=== PATIENT | male | born 1950 | race Caucasian/White ===

== ENCOUNTER 2017-06-21 12:50 | Inpatient (IN) | payer MEDICARE ==
[2017-06-21 14:22] VITALS: BP 90/50
[2017-06-21] MEDS ORDERED: Maalox 30 mL Cup PO PRN (14:47)
[2017-06-21] MEDS ORDERED: Magnesium Hydroxide (MOM) 30 mL UDC PO PRN (14:47)
[2017-06-21] MEDS: Hydrocodone/APAP 5mg/325mg Tab PO PRN (16:33)
[2017-06-21] MEDS ORDERED: MARAVIROC 300 MG PO SCH (17:00)
[2017-06-21] MEDS: TIVICAY 50 MG PO SCH (18:00)
[2017-06-22] MEDS ORDERED: Enoxaparin 40 mg/0.4 mL 0.4mL Syr SUBQ SCH (09:00)
[2017-06-22] MEDS: Vitamin D3 2,000 IU SGL PO SCH (09:16)
[2017-06-22] MEDS: Ferrous Sulfate 325 MG TAB PO SCH (09:17)
[2017-06-22] MEDS: TIVICAY 50 MG PO SCH ×2 (09:17→17:47)
--- NOTE | 2017-06-22 11:13 | Psychosocial Evaluation ---
DATE OF SERVICE: 06/21/2017 IDENTIFYING DATA: The patient is a 66-year-old male, currently homeless. Information obtained by directly interviewing the patient as well as reviewing the admission papers. JUSTIFICATION FOR HOSPITALIZATION: The patient is admitted on a 5150 as a danger to self and being gravely disabled. CHIEF COMPLAINT: "I want to give up." HISTORY OF PRESENT ILLNESS: This is one of multiple psychiatric hospitalizations, first one to [facility], for this patient who has been brought in here from [place] and the patient has been placed on 5150 as a danger to self because the patient has taken a blade and cut his left wrist and the patient is stating that since his , he has been feeling depressed and wanting to end his life. The patient during the interview has been isolative and withdrawn. The patient is stating that he was started on medications before, but he states that he stopped taking the medications 3 months ago. PAST PSYCHIATRIC HISTORY: Please refer to the above. The patient is very irritable at this time for being in here away from all the way where he has been staying; however, he is reporting that he is not able to sleep. MEDICAL HISTORY: Physical examination is requested and done by Dr. Carmona. The patient's medical history is significant for HIV positive and neuropathy. SOCIAL HISTORY: The patient is reporting that he was raised in [place]. The patient is stating that he has two biological sisters and has no contact with them, has one adopted brother. The patient is reported to have been in [employer] business and working in [place] for more than 15 years. The patient is reported that his life changed since his partner of HIV and he was apparently infected at that time and has been on antiviral medications in the recent years. The patient is stating that he has been having difficult time to deal with the stuff and things have been going down since 2013. The patient is reporting that he is currently homeless. SUBSTANCE ABUSE HISTORY: The patient has a history of abusing methamphetamine in the past, but he is stating that he is just drinking alcohol, but he is not using any hardcore drugs. STRENGTH AND ASSETS: The patient is motivated. MENTAL STATUS EXAMINATION: The patient is 66-year-old, thin built, superficially cooperative. Eye contact is poor. Mood is noted to be depressed. Affect is constricted. Insight and judgment at this time are noted to be impaired. Impulse control seems to be poor. The patient is suicidal with a plan. The patient has been cutting up on himself. The patient has multiple lacerations on his wrists. Speech is coherent and the patient has been able to give a detailed history. The patient, however, has been feeling helpless and hopeless. The patient is stating that since his , he has been having difficult time to deal with the stress. The patient is denying any auditory hallucinations or delusions are noted. The patient is alert and oriented x 3. Short and long-term memory is noted to be intact. The patient's behavior is clearly a danger to self at this time. The patient is not homicidal. The patient, however, is noted to be motivated for treatment. The patient is lying down in the bed and the patient is also reported to have been using the wheelchair. DIAGNOSTIC IMPRESSION: AXIS I: a. Major depressive disorder, recurrent and severe. b. Alcohol dependence. AXIS II: None. AXIS III: As per Dr. Carmona. IMMEDIATE TREATMENT PLAN: The patient is going to be observed on inpatient unit, provided with supportive psychotherapy. The patient is going to be started on low dose of Lexapro and the patient is going to be closely monitored. Once stabilized, the patient is going to be discharged and outpatient case manager is going to be involved with regards to placement of this patient. JOB# [id number]
[2017-06-22] MEDS: Hydrocodone/APAP 5mg/325mg Tab PO PRN ×2 (12:10→21:34)
--- NOTE | 2017-06-23 04:54 | History & Physical ---
ADMIT DATE: REASON FOR ADMISSION: Psychiatric disorder. HISTORY OF PRESENT ILLNESS: This is a 66-year-old with underlying history of HIV, hep C, was admitted to [facility] for evaluation and treatment of underlying psychiatric illness . The patient denies any current medical concerns. The patient was diagnosed with HIV in 1981. He goes to HIV clinic. PAST MEDICAL HISTORY: HIV, hepatitis. FAMILY HISTORY: Noncontributory. SOCIAL HISTORY: [facility]. Denies any alcohol, tobacco, or street drug use. CURRENT MEDICATIONS: As per medication reconciliation list, reviewed. ALLERGIES: No known drug allergies. REVIEW OF SYSTEMS: The patient denies any fever. No chills, no nausea, no vomiting, no abdominal pain, no headache, no trouble with vision, no trouble with speech or other complaints. PHYSICAL EXAMINATION: VITAL SIGNS: Temperature 98.2, pulse 80 respirations 20, blood pressure 98/64. HEART: S1, S2 normal. LUNGS: Clear. ABDOMEN: Soft, nontender. NEUROLOGIC: The patient is awake. Moves all extremities. No focal deficits. EXTREMITIES: No edema. AVAILABLE LABORATORY DATA: Reviewed. ASSESSMENT: 1. HIV. 2. Hepatitis C. 3. Hypertension. 4. Iron deficiency anemia. 5. Mental health disorder PLAN: The patient will be continued on HIV medications. ID consult has been called in. The patient's Coreg will be discontinued due to low blood pressure. Continue iron supplement. I discussed the patient's condition and plan of care discussed with nursing staff. JOB# [id number] [facility]
[2017-06-23] MEDS: Ferrous Sulfate 325 MG TAB PO SCH (08:36)
[2017-06-23] MEDS: Vitamin D3 2,000 IU SGL PO SCH (08:36)
[2017-06-23] MEDS: TIVICAY 50 MG PO SCH ×2 (08:38→16:10)
--- NOTE | 2017-06-23 21:23 | Progress Notes ---
DATE: 06/23/2017 Staff was spoken to. The patient is interviewed. Mood is noted to be depressed. Affect is constricted. The patient's insight and judgment are noted to be still impaired. Impulse control is very poor. Coping skills are also noted to be very poor. The patient is isolated and withdrawn. The patient is worried about not getting his HIV medications. The patient is stating that he is getting frustrated. The patient is still suicidal. No homicidal ideation is noted. The patient is being closely monitored at this time. The patient is currently on the escitalopram 10 mg for her depression and the patient is going to be closely monitored and provided with supportive therapy. ASSESSMENT: The patient is still depressed and suicidal. PLAN: To continue patient with the supportive therapy. I encouraged the patient to verbalize the concerns rather than to act out. JOB# [id number]
--- NOTE | 2017-06-24 00:27 | Consultation ---
DATE OF CONSULTATION: 06/23/2017 INFECTIOUS DISEASE CONSULTATION REFERRING PHYSICIAN: Brett Carmona M.D. REASON FOR CONSULTATION: HIV. HISTORY OF PRESENT ILLNESS: The patient is a 66-year-old male with a past medical history of HIV, hepatitis C, admitted to [facility] for evaluation and treatment of his depression. He lost his boyfriend who of same disease and got depressed. The patient was diagnosed with HIV in 1981 and doing well on current medication including Tivicay and Maraviroc. PAST MEDICAL HISTORY: Includes HIV, hepatitis C. FAMILY HISTORY: Noncontributory. SOCIAL HISTORY: The patient lives at a snf. Denies any alcohol use, smoking, or street drug use. MEDICATIONS: As per medication reconciliation sheet. Antiretrovirals include Maraviroc and Tivicay. ALLERGIES: NKDA. REVIEW OF SYSTEMS: Not significant. A 14-point review of system performed was negative except mentioned above. The patient's only symptom is depression. The patient is unable to walk on his own. PHYSICAL EXAMINATION: VITAL SIGNS: Shows temperature is 98 degrees Fahrenheit, pulse 72, respirations 20, blood pressure 109/74. GENERAL: The patient is comfortable, lying in the bed, cachectic. HEENT: Head is normocephalic, atraumatic. Oral cavity moist, pink tongue. Eyes: No pallor, no icterus. Pupils PERRLA, EOMI. NECK: Supple. No JVD, no carotid bruit. Trachea in midline. CHEST: Bilateral breath sounds. No crackles or wheezing. HEART: S1, S2 within normal limits. Regular rhythm. No murmur, no gallop. ABDOMEN: Soft, nontender, nondistended. Bowel sounds present. EXTREMITIES: No cyanosis, no clubbing, no edema. NEUROLOGIC: Alert, awake, oriented x 3. LABORATORY DATA: No labs available at this time. IMPRESSION: 1. Human immunodeficiency virus, as per the patient, he is stable, doing well. 2. Depression. 3. Generalized weakness. RECOMMENDATIONS: We will continue the same medication of Tivicay and Maraviroc. May get records from the HIV provider. Meanwhile, check CD4 count and HIV viral load. Check hepatitis C panel and alpha-fetoprotein. Thank you, Dr. Carmona for involving me in taking care of this patient. JOB# [id number] MTDD
[2017-06-24 07:14] LABS: % BASOPHILS 0.4 % (0.0-2.0); % EOSINOPHILS 7.7 % (0.0-5.0); % LYMPHOCYTES 14.3 % (20.0-50.0); % MONOCYTES 6.3 % (2.0-10.0); % NEUTROPHILS 71.3 % (40.0-80.0); EOSINOPHILE ABSOLUTE 0.4 Th/cmm (0.1-0.4); HEMATOCRIT 36.9 % (41.0-60); HEMOGLOBIN 12.5 gm/dL (12-16); LYMPHOCYTE ABSOLUTE 0.8 Th/cmm (1.5-3.0); MEAN CORPUSCULAR HEMOGLOBIN 27.7 pg (27.0-31.0); MEAN CORPUSCULAR HGB CONC 33.8 pg (28.0-36.0); MEAN PLATELET VOLUME 9.1 fl; MONOCYTE ABSOLUTE 0.4 Th/cmm (0.3-1.0); NEUTROPHILE ABSOLUTE 4.2 Th/cmm (1.8-8.0); PLATELET COUNT 193 Th/cmm (150-400); RED CELL DISTRIBUTION WIDTH 15.2 % (11.5-20.0); WHITE BLOOD COUNT 5.8 Th/cmm (4.8-10.8)
[2017-06-24 07:48] LABS: ALB/GLOB RATIO 0.8 (1.0-1.8); ALBUMIN 2.6 gm/dL (4.2-5.5); ALKALINE PHOSPHATASE 340 U/L (34-104); ANION GAP 10.1 (7.0-16.0); BILIRUBIN,TOTAL 1.6 mg/dL (0.3-1.0); BUN - UREA NITROGEN 17 mg/dL (7-25); CALCIUM SERUM 8.5 mg/dL (8.6-10.3); CARBON DIOXIDE 24.9 mEq/L (21.0-31.0); CHLORIDE 99 mEq/L (98-107); CREATININE - SERUM 0.6 mg/dL (0.7-1.3); GFR AFRICAN-AMERICAN > 60.0 ml/min (>90); GFR NON AFRICAN-AMERICAN > 60.0 ml/min; GLUCOSE 91 mg/dL (70-105); SGOT 102 U/L (13-39); SGPT/ALT 56 U/L (7-52); SODIUM SERUM 130 mEq/L (136-145); TOTAL PROTEIN,SERUM 5.8 gm/dL (6.0-8.3)
[2017-06-24] MEDS: Ferrous Sulfate 325 MG TAB PO SCH (08:53)
[2017-06-24] MEDS: Vitamin D3 2,000 IU SGL PO SCH (08:53)
[2017-06-24] MEDS: TIVICAY 50 MG PO SCH ×2 (09:30→16:13)
--- NOTE | 2017-06-24 14:24 | Infectious Disease Prog Note ---
Infectious Disease Subjective - Review of Systems Service Date: 06/24/17 Events since last encounter: No new change. Subjective: Doing well. Infectious Disease Objective - Results Result Diagrams: 06/24/17 06:57 06/24/17 06:57 Recent Labs: Laboratory Last Values WBC 5.8 Th/cmm (4.8-10.8) 06/24/17 06:57 RBC 4.50 Mil/cmm (3.80-5.80) 06/24/17 06:57 Hgb 12.5 gm/dL (12-16) 06/24/17 06:57 Hct 36.9 % (41.0-60) L 06/24/17 06:57 MCV 82.0 fl (80-99) 06/24/17 06:57 MCH 27.7 pg (27.0-31.0) 06/24/17 06:57 MCHC Differential 33.8 pg (28.0-36.0) 06/24/17 06:57 RDW 15.2 % (11.5-20.0) 06/24/17 06:57 Plt Count 193 Th/cmm (150-400) 06/24/17 06:57 MPV 9.1 fl 06/24/17 06:57 Neutrophils % 71.3 % (40.0-80.0) 06/24/17 06:57 Lymphocytes % 14.3 % (20.0-50.0) L 06/24/17 06:57 Monocytes % 6.3 % (2.0-10.0) 06/24/17 06:57 Eosinophils % 7.7 % (0.0-5.0) H 06/24/17 06:57 Basophils % 0.4 % (0.0-2.0) 06/24/17 06:57 Sodium 130 mEq/L (136-145) L 06/24/17 06:57 Potassium 4.0 mEq/L (3.5-5.1) 06/24/17 06:57 Chloride 99 mEq/L (98-107) 06/24/17 06:57 Carbon Dioxide 24.9 mEq/L (21.0-31.0) 06/24/17 06:57 Anion Gap 10.1 (7.0-16.0) 06/24/17 06:57 BUN 17 mg/dL (7-25) 06/24/17 06:57 Creatinine 0.6 mg/dL (0.7-1.3) L 06/24/17 06:57 Est GFR ( Amer) > 60.0 ml/min (>90) 06/24/17 06:57 Est GFR (Non-Af Amer) > 60.0 ml/min 06/24/17 06:57 BUN/Creatinine Ratio 28.3 06/24/17 06:57 Glucose 91 mg/dL (70-105) 06/24/17 06:57 Calcium 8.5 mg/dL (8.6-10.3) L 06/24/17 06:57 Total Bilirubin 1.6 mg/dL (0.3-1.0) H 06/24/17 06:57 AST 102 U/L (13-39) H 06/24/17 06:57 ALT 56 U/L (7-52) H 06/24/17 06:57 Alkaline Phosphatase 340 U/L (34-104) H 06/24/17 06:57 Total Protein 5.8 gm/dL (6.0-8.3) L 06/24/17 06:57 Albumin 2.6 gm/dL (4.2-5.5) L 06/24/17 06:57 Globulin 3.2 gm/dL 06/24/17 06:57 Albumin/Globulin Ratio 0.8 (1.0-1.8) L 06/24/17 06:57 HIV 1&2 Antibody Screen POSITIVE (NEG) H 06/24/17 06:57 - Physical Exam Vitals and I&O: Vital Signs Temp 98 F 06/23/17 20:57 Pulse 72 06/23/17 20:57 Resp 20 06/23/17 20:57 BP 109/74 06/23/17 20:57 Pulse Ox 98 06/23/17 14:00 Intake & Output 06/23/17 06/24/17 06/24/17 18:59 06:59 18:59 Intake Total 1200 120 Balance 1200 120 Intake: Oral 1200 120 Other: # Voids 3 1 Active Medications: Current Medications Acetaminophen (Tylenol) 650 mg PO Q4H PRN PRN Reason: Mild Pain/Headache/T above 101 Stop: 08/20/17 14:46 Acetaminophen/Hydrocodone Bitart ([place] 5mg/325mg) 1 tab PO Q4HR PRN PRN Reason: Pain (Moderate) Stop: 08/20/17 14:34 Last Admin: 06/22/17 21:34 Dose: 1 tab Al Hydrox/Mg Hydrox/Simethicone (Maalox) 30 ml PO Q6H PRN PRN Reason: Dyspepsia Stop: 08/20/17 14:46 Aripiprazole (Abilify) 15 mg PO DAILY [facility] PRN Reason: Protocol Stop: 08/21/17 08:59 Last Admin: 06/24/17 08:53 Dose: 15 mg Aspirin (Ecotrin) 81 mg PO DAILY [facility] Stop: 08/21/17 08:59 Last Admin: 06/24/17 08:53 Dose: 81 mg Escitalopram Oxalate (Lexapro) 10 mg PO DAILY [facility] PRN Reason: Protocol Stop: 08/22/17 08:59 Last Admin: 06/24/17 08:53 Dose: 10 mg Famotidine (Pepcid) 20 mg PO BID [facility] Stop: 08/20/17 16:59 Last Admin: 06/24/17 08:53 Dose: 20 mg Ferrous Sulfate (Iron) 325 mg PO DAILY [facility] Stop: 08/21/17 08:59 Last Admin: 06/24/17 08:53 Dose: 325 mg Gabapentin (Neurontin) 800 mg PO TID [facility] Stop: 08/20/17 20:59 Last Admin: 06/24/17 13:11 Dose: 800 mg Lorazepam (Ativan) 0.5 mg PO Q4H PRN; Protocol PRN Reason: Anxiety/Agitation Stop: 08/20/17 14:46 Magnesium Hydroxide (Milk Of Magnesia) 30 ml PO DAILY PRN PRN Reason: Constipation Stop: 08/20/17 14:46 Miscellaneous (Maraviroc [Selzentry]) 300 mg PO BID [facility] Stop: 08/20/17 16:59 Ondansetron HCl (Zofran Odt) 4 mg PO Q6H PRN PRN Reason: Nausea / Vomiting Stop: 08/20/17 14:46 Patient Own Med- Tivicay ( Dolutegravir) 50mg Tab 1 PO BID [facility] Stop: 08/20/17 16:59 Last Admin: 06/24/17 09:30 Dose: 1 Tamsulosin HCl (Flomax) 0.4 mg PO [facility] Stop: 08/20/17 20:59 Last Admin: 06/23/17 20:47 Dose: 0.4 mg Thiamine HCl (Vitamin B1) 100 mg PO DAILY [facility] Stop: 08/21/17 08:59 Last Admin: 06/24/17 08:53 Dose: 100 mg Vitamin D (Vitamin D3) 2,000 iu PO DAILY [facility] Stop: 08/21/17 08:59 Last Admin: 06/24/17 08:53 Dose: 2,000 iu Zolpidem Tartrate (Ambien) 5 mg PO HS PRN PRN Reason: Insomnia Stop: 08/20/17 14:46 General: no acute distress, well developed, well nourished HEENT: atraumatic, normocephalic, PERRLA, EOMI Neck: supple, no thyromegaly Cardiovascular: S1S2, regular Lungs: clear to auscultation bilaterally, clear to percussion Abdomen: soft, no tender, no distended Extremities: no cyanosis, no clubbing, no edema Neurological: awake, alert, oriented Skin: intact Infectious Disease Assmt/Plan - Problem List Patient Problems: All Active Problems Diastolic CHF (Acute) I50.30 HIV (human immunodeficiency virus infection) (Acute) History of appendectomy (Acute) Z98.890, Z90.49 History of left knee replacement (Acute) Z96.652 History of tonsillectomy (Acute) Z98.890, Z90.89 Major depressive disorder (Acute) F32.9 Peripheral neuropathy (Acute) G62.9 Polysubstance abuse (Acute) F19.10 RESECTION OF BRAIN TUMOR (Acute) Rheumatoid arthritis (Acute) M06.9 - Assessment Assessment: IMPRESSION: 1. Human immunodeficiency virus, as per the patient, he is stable, doing well. 2. Depression. 3. Generalized weakness. RECOMMENDATIONS: Continue the same medication of Tivicay and Maraviroc. May get records from his HIV provider. Meanwhile, check CD4 count and HIV viral load. Check hepatitis C panel and alpha-fetoprotein.
--- NOTE | 2017-06-24 15:45 | Progress Notes ---
DATE: 06/24/2017 SUBJECTIVE: Staff was spoken to. The patient is interviewed. Mood is noted to be irritable. Affect is constricted. The patient coping was noted to be poor. The patient is isolative and withdrawn. The patient's participation in the groups is noted to be very limited. No side effects to the medications are noted at this time. ASSESSMENT: The patient is still depressed and suicidal. PLAN: To continue the patient with the supportive therapy, encouraged the patient to verbalize the concerns rather than to act out. [facility]# [id number]
[2017-06-25] MEDS: TIVICAY 50 MG PO SCH (09:35)
[2017-06-25] MEDS: Ferrous Sulfate 325 MG TAB PO SCH (09:38)
[2017-06-25] MEDS: Vitamin D3 2,000 IU SGL PO SCH (09:38)
--- NOTE | 2017-06-25 12:06 | Infectious Disease Prog Note ---
Infectious Disease Subjective - Review of Systems Service Date: 06/25/17 Subjective: Doing well. Infectious Disease Objective - Results Result Diagrams: 06/24/17 06:57 06/24/17 06:57 Recent Labs: Laboratory Last Values WBC 5.8 Th/cmm (4.8-10.8) 06/24/17 06:57 RBC 4.50 Mil/cmm (3.80-5.80) 06/24/17 06:57 Hgb 12.5 gm/dL (12-16) 06/24/17 06:57 Hct 36.9 % (41.0-60) L 06/24/17 06:57 MCV 82.0 fl (80-99) 06/24/17 06:57 MCH 27.7 pg (27.0-31.0) 06/24/17 06:57 MCHC Differential 33.8 pg (28.0-36.0) 06/24/17 06:57 RDW 15.2 % (11.5-20.0) 06/24/17 06:57 Plt Count 193 Th/cmm (150-400) 06/24/17 06:57 MPV 9.1 fl 06/24/17 06:57 Neutrophils % 71.3 % (40.0-80.0) 06/24/17 06:57 Lymphocytes % 14.3 % (20.0-50.0) L 06/24/17 06:57 Monocytes % 6.3 % (2.0-10.0) 06/24/17 06:57 Eosinophils % 7.7 % (0.0-5.0) H 06/24/17 06:57 Basophils % 0.4 % (0.0-2.0) 06/24/17 06:57 Sodium 130 mEq/L (136-145) L 06/24/17 06:57 Potassium 4.0 mEq/L (3.5-5.1) 06/24/17 06:57 Chloride 99 mEq/L (98-107) 06/24/17 06:57 Carbon Dioxide 24.9 mEq/L (21.0-31.0) 06/24/17 06:57 Anion Gap 10.1 (7.0-16.0) 06/24/17 06:57 BUN 17 mg/dL (7-25) 06/24/17 06:57 Creatinine 0.6 mg/dL (0.7-1.3) L 06/24/17 06:57 Est GFR ( Amer) > 60.0 ml/min (>90) 06/24/17 06:57 Est GFR (Non-Af Amer) > 60.0 ml/min 06/24/17 06:57 BUN/Creatinine Ratio 28.3 06/24/17 06:57 Glucose 91 mg/dL (70-105) 06/24/17 06:57 Calcium 8.5 mg/dL (8.6-10.3) L 06/24/17 06:57 Total Bilirubin 1.6 mg/dL (0.3-1.0) H 06/24/17 06:57 AST 102 U/L (13-39) H 06/24/17 06:57 ALT 56 U/L (7-52) H 06/24/17 06:57 Alkaline Phosphatase 340 U/L (34-104) H 06/24/17 06:57 Total Protein 5.8 gm/dL (6.0-8.3) L 06/24/17 06:57 Albumin 2.6 gm/dL (4.2-5.5) L 06/24/17 06:57 Globulin 3.2 gm/dL 06/24/17 06:57 Albumin/Globulin Ratio 0.8 (1.0-1.8) L 06/24/17 06:57 HIV 1&2 Antibody Screen POSITIVE (NEG) H 06/24/17 06:57 - Physical Exam Vitals and I&O: Vital Signs Temp 97.2 F 06/24/17 20:00 Pulse 83 06/24/17 20:00 Resp 20 06/24/17 20:00 BP 106/71 06/24/17 20:00 Pulse Ox 93 06/24/17 20:00 Intake & Output 06/24/17 06/25/17 06/25/17 18:59 06:59 18:59 Intake Total 1800 120 Output Total 800 Balance 1000 120 Intake: Oral 1800 120 Output: Urine 800 Other: # Voids 3 # Bowel Movements 0 Active Medications: Current Medications Acetaminophen (Tylenol) 650 mg PO Q4H PRN PRN Reason: Mild Pain/Headache/T above 101 Stop: 08/20/17 14:46 Acetaminophen/Hydrocodone Bitart ([place] 5mg/325mg) 1 tab PO Q4HR PRN PRN Reason: Pain (Moderate) Stop: 08/20/17 14:34 Last Admin: 06/22/17 21:34 Dose: 1 tab Al Hydrox/Mg Hydrox/Simethicone (Maalox) 30 ml PO Q6H PRN PRN Reason: Dyspepsia Stop: 08/20/17 14:46 Aripiprazole (Abilify) 15 mg PO DAILY [facility] PRN Reason: Protocol Stop: 08/21/17 08:59 Last Admin: 06/25/17 09:38 Dose: 15 mg Aspirin (Ecotrin) 81 mg PO DAILY [facility] Stop: 08/21/17 08:59 Last Admin: 06/25/17 09:38 Dose: 81 mg Escitalopram Oxalate (Lexapro) 10 mg PO DAILY [facility] PRN Reason: Protocol Stop: 08/22/17 08:59 Last Admin: 06/25/17 09:38 Dose: 10 mg Famotidine (Pepcid) 20 mg PO BID [facility] Stop: 08/20/17 16:59 Last Admin: 06/25/17 09:41 Dose: 20 mg Ferrous Sulfate (Iron) 325 mg PO DAILY [facility] Stop: 08/21/17 08:59 Last Admin: 06/25/17 09:38 Dose: 325 mg Gabapentin (Neurontin) 800 mg PO TID [facility] Stop: 08/20/17 20:59 Last Admin: 06/25/17 09:35 Dose: 800 mg Lorazepam (Ativan) 0.5 mg PO Q4H PRN; Protocol PRN Reason: Anxiety/Agitation Stop: 08/20/17 14:46 Magnesium Hydroxide (Milk Of Magnesia) 30 ml PO DAILY PRN PRN Reason: Constipation Stop: 08/20/17 14:46 Miscellaneous (Maraviroc [Selzentry]) 300 mg PO BID [facility] Stop: 08/20/17 16:59 Ondansetron HCl (Zofran Odt) 4 mg PO Q6H PRN PRN Reason: Nausea / Vomiting Stop: 08/20/17 14:46 Patient Own Med- Tivicay ( Dolutegravir) 50mg Tab 1 PO BID [facility] Stop: 08/20/17 16:59 Last Admin: 06/25/17 09:35 Dose: 1 Tamsulosin HCl (Flomax) 0.4 mg PO HS [facility] Stop: 08/20/17 20:59 Last Admin: 06/24/17 20:54 Dose: 0.4 mg Thiamine HCl (Vitamin B1) 100 mg PO DAILY [facility] Stop: 08/21/17 08:59 Last Admin: 06/25/17 09:38 Dose: 100 mg Vitamin D (Vitamin D3) 2,000 iu PO DAILY [facility] Stop: 08/21/17 08:59 Last Admin: 06/25/17 09:38 Dose: 2,000 iu Zolpidem Tartrate (Ambien) 5 mg PO HS PRN PRN Reason: Insomnia Stop: 08/20/17 14:46 Last Admin: 06/24/17 23:20 Dose: 5 mg General: no acute distress, well developed, well nourished HEENT: atraumatic, normocephalic, PERRLA, EOMI, moist mucous membrane Neck: supple Cardiovascular: S1S2, regular Lungs: clear to auscultation bilaterally, clear to percussion Abdomen: soft, bowel sounds, no tender, no distended, no obese Extremities: no cyanosis, no clubbing, no edema Neurological: awake, alert, oriented Skin: intact Infectious Disease Assmt/Plan - Problem List Patient Problems: All Active Problems Diastolic CHF (Acute) I50.30 HIV (human immunodeficiency virus infection) (Acute) History of appendectomy (Acute) Z98.890, Z90.49 History of left knee replacement (Acute) Z96.652 History of tonsillectomy (Acute) Z98.890, Z90.89 Major depressive disorder (Acute) F32.9 Peripheral neuropathy (Acute) G62.9 Polysubstance abuse (Acute) F19.10 RESECTION OF BRAIN TUMOR (Acute) Rheumatoid arthritis (Acute) M06.9 - Assessment Assessment: IMPRESSION: 1. Human immunodeficiency virus, as per the patient, he is stable, doing well. 2. Depression. 3. Generalized weakness. RECOMMENDATIONS: Continue the same medication of Tivicay and Maraviroc. May get records from his HIV provider. Meanwhile, check CD4 count and HIV viral load. Check hepatitis C panel and alpha-fetoprotein.
[2017-06-25 15:07] LABS: HEP A AB IGM Negative (Negative); HEP B CORE IGM Negative (Negative); HEP B SURFACE AG QL Negative (Negative); HEP C ANTIBODY 0.1 s/co ratio (0.0-0.9)
--- NOTE | 2017-06-25 23:03 | Progress Notes ---
DATE: 06/25/2017 SUBJECTIVE: Staff was spoken to. The patient is interviewed. Mood is noted to be depressed. Affect is constricted. The patient is isolative and withdrawn. Insight and judgment noted to be still impaired. Impulse control seems to be poor. Coping skills are also noted to be very poor. The patient has been having difficult time to cope with the stress. ASSESSMENT: The patient is still depressed, suicidal ideation is resolving. PLAN: To continue the patient with the supportive therapy and followup. JOB# [id number]
[2017-06-26] MEDS: Vitamin D3 2,000 IU SGL PO SCH (08:44)
[2017-06-26] MEDS: Ferrous Sulfate 325 MG TAB PO SCH (08:45)
[2017-06-26] MEDS: TIVICAY 50 MG PO SCH ×2 (08:46→16:16)
--- NOTE | 2017-06-26 14:08 | Progress Notes ---
DATE: 06/26/2017 SUBJECTIVE: Staff was spoken to. The patient is interviewed. Mood is noted to be depressed. Affect is constricted. The patient is isolative and withdrawn. Insight and judgment are noted to be still impaired. Impulse control is noted to be poor. The patient is a bit talking about his life, which has gone down since he moved down from [place]. Coping skills at this time are noted to be very poor. To continue the patient with the current medication. The patient so far has been able to tolerate the medications. No side effects to the medications are noted. The patient is able to get into the groove. The patient is currently on Lexapro 10 mg. No side effects are noted. ASSESSMENT: The patient is still depressed. PLAN: To continue the patient with the supportive therapy and followup. JOB# [id number]
[2017-06-26] MEDS: Hydrocodone/APAP 5mg/325mg Tab PO PRN (14:41)
[2017-06-27] MEDS: Ferrous Sulfate 325 MG TAB PO SCH (08:51)
[2017-06-27] MEDS: TIVICAY 50 MG PO SCH ×3 (08:51→18:13)
[2017-06-27] MEDS: Vitamin D3 2,000 IU SGL PO SCH (08:53)
--- NOTE | 2017-06-27 13:32 | Progress Notes ---
DATE: 06/27/2017 SUBJECTIVE: Staff was spoken to. The patient is interviewed. Mood is noted to be depressed. Affect is constricted. The patient is isolative and withdrawn. Coping skills are noted to be still poor. Sleep and appetite also noted to be very much flat and the patient is stating that he has been trying to get into the groups, but the patient is stating that he would rather isolate and then be there in his room. The patient is currently on Lexapro 10 mg and has been able to tolerate the medications. No side effects to the medications are noted. ASSESSMENT: The patient is still depressed. PLAN: To continue the patient with the supportive therapy and followup. JOB# [id number]
[2017-06-27] MEDS: Hydrocodone/APAP 5mg/325mg Tab PO PRN (18:13)
[2017-06-28 08:37] LABS: CD4 % ABS SUBSET 5 SEE REF. LAB REPORT; HEP B CORE AB TOTAL SEE REF. LAB REPORT; HEP B SURFACE AB QUANT SEE REF. LAB REPORT; HIV1 Multispot SEE REF. LAB REPORT
[2017-06-28] MEDS: TIVICAY 50 MG PO SCH ×2 (08:48→17:30)
[2017-06-28] MEDS: Ferrous Sulfate 325 MG TAB PO SCH (08:49)
[2017-06-28] MEDS: Vitamin D3 2,000 IU SGL PO SCH (08:49)
--- NOTE | 2017-06-28 16:02 | General Progress Note ---
Subjective - Review of Systems Service Date: 06/28/17 Subjective: Patient doing better c/o generalized body pain no other complaints Objective - Results Result Diagrams: 06/24/17 06:57 06/24/17 06:57 Recent Labs: Laboratory Last Values WBC 5.8 Th/cmm (4.8-10.8) 06/24/17 06:57 RBC 4.50 Mil/cmm (3.80-5.80) 06/24/17 06:57 Hgb 12.5 gm/dL (12-16) 06/24/17 06:57 Hct 36.9 % (41.0-60) L 06/24/17 06:57 MCV 82.0 fl (80-99) 06/24/17 06:57 MCH 27.7 pg (27.0-31.0) 06/24/17 06:57 MCHC Differential 33.8 pg (28.0-36.0) 06/24/17 06:57 RDW 15.2 % (11.5-20.0) 06/24/17 06:57 Plt Count 193 Th/cmm (150-400) 06/24/17 06:57 MPV 9.1 fl 06/24/17 06:57 Neutrophils % 71.3 % (40.0-80.0) 06/24/17 06:57 Lymphocytes % 14.3 % (20.0-50.0) L 06/24/17 06:57 Monocytes % 6.3 % (2.0-10.0) 06/24/17 06:57 Eosinophils % 7.7 % (0.0-5.0) H 06/24/17 06:57 Basophils % 0.4 % (0.0-2.0) 06/24/17 06:57 Sodium 130 mEq/L (136-145) L 06/24/17 06:57 Potassium 4.0 mEq/L (3.5-5.1) 06/24/17 06:57 Chloride 99 mEq/L (98-107) 06/24/17 06:57 Carbon Dioxide 24.9 mEq/L (21.0-31.0) 06/24/17 06:57 Anion Gap 10.1 (7.0-16.0) 06/24/17 06:57 BUN 17 mg/dL (7-25) 06/24/17 06:57 Creatinine 0.6 mg/dL (0.7-1.3) L 06/24/17 06:57 Est GFR ( Amer) > 60.0 ml/min (>90) 06/24/17 06:57 Est GFR (Non-Af Amer) > 60.0 ml/min 06/24/17 06:57 BUN/Creatinine Ratio 28.3 06/24/17 06:57 Glucose 91 mg/dL (70-105) 06/24/17 06:57 Calcium 8.5 mg/dL (8.6-10.3) L 06/24/17 06:57 Total Bilirubin 1.6 mg/dL (0.3-1.0) H 06/24/17 06:57 AST 102 U/L (13-39) H 06/24/17 06:57 ALT 56 U/L (7-52) H 06/24/17 06:57 Alkaline Phosphatase 340 U/L (34-104) H 06/24/17 06:57 Total Protein 5.8 gm/dL (6.0-8.3) L 06/24/17 06:57 Albumin 2.6 gm/dL (4.2-5.5) L 06/24/17 06:57 Globulin 3.2 gm/dL 06/24/17 06:57 Albumin/Globulin Ratio 0.8 (1.0-1.8) L 06/24/17 06:57 Tumor Marker AFP 16.9 ng/mL (0.0-8.3) H 06/24/17 06:57 Absolute CD4 Count SEE REF. LAB REPORT 06/24/17 06:57 Hepatitis A IgM Ab Negative (Negative) 06/24/17 06:57 Hep Bs Antigen Negative (Negative) 06/24/17 06:57 Hep Bs Antibody, Quant SEE REF. LAB REPORT 06/24/17 06:57 Hep B Core Total Ab SEE REF. LAB REPORT 06/24/17 06:57 Hep B Core IgM Ab Negative (Negative) 06/24/17 06:57 Hepatitis C Antibody 0.1 s/co ratio (0.0-0.9) 06/24/17 06:57 HIV 1&2 Antibody Screen POSITIVE (NEG) H 06/24/17 06:57 HIV (1&2) Ab Confirm SEE REF. LAB REPORT 06/24/17 06:57 - Physical Exam Vitals and I&O: Vital Signs Temp 97.7 F 06/28/17 05:59 Pulse 60 06/28/17 05:59 Resp 20 06/28/17 05:59 BP 132/63 06/28/17 05:59 Pulse Ox 97 06/28/17 05:59 Intake & Output 06/27/17 06/28/17 06/28/17 18:59 06:59 18:59 Intake Total 360 Balance 360 Intake: Oral 360 Other: # Voids 2 # Bowel Movements 0 Active Medications: Current Medications Acetaminophen (Tylenol) 650 mg PO Q4H PRN PRN Reason: Mild Pain/Headache/T above 101 Stop: 08/20/17 14:46 Last Admin: 06/28/17 13:31 Dose: 650 mg Acetaminophen/Hydrocodone Bitart ([place] 5mg/325mg) 1 tab PO Q4HR PRN PRN Reason: Pain (Moderate) Stop: 08/20/17 14:34 Last Admin: 06/27/17 18:13 Dose: 1 tab Al Hydrox/Mg Hydrox/Simethicone (Maalox) 30 ml PO Q6H PRN PRN Reason: Dyspepsia Stop: 08/20/17 14:46 Aripiprazole (Abilify) 15 mg PO DAILY [facility] PRN Reason: Protocol Stop: 08/21/17 08:59 Last Admin: 06/28/17 08:49 Dose: 15 mg Aspirin (Ecotrin) 81 mg PO DAILY [facility] Stop: 08/21/17 08:59 Last Admin: 06/28/17 08:49 Dose: 81 mg Escitalopram Oxalate (Lexapro) 10 mg PO DAILY [facility] PRN Reason: Protocol Stop: 08/22/17 08:59 Last Admin: 06/28/17 08:49 Dose: 10 mg Famotidine (Pepcid) 20 mg PO BID [facility] Stop: 08/20/17 16:59 Last Admin: 06/28/17 08:49 Dose: 20 mg Ferrous Sulfate (Iron) 325 mg PO DAILY [facility] Stop: 08/21/17 08:59 Last Admin: 06/28/17 08:49 Dose: 325 mg Gabapentin (Neurontin) 800 mg PO TID [facility] Stop: 08/20/17 20:59 Last Admin: 06/28/17 13:50 Dose: 800 mg Ibuprofen (Motrin) 800 mg PO TID PRN PRN Reason: Pain (Mild) Stop: 08/27/17 20:59 Lorazepam (Ativan) 0.5 mg PO Q4H PRN; Protocol PRN Reason: Anxiety/Agitation Stop: 08/20/17 14:46 Magnesium Hydroxide (Milk Of Magnesia) 30 ml PO DAILY PRN PRN Reason: Constipation Stop: 08/20/17 14:46 Miscellaneous (Maraviroc [Selzentry]) 300 mg PO BID [facility] Stop: 08/20/17 16:59 Ondansetron HCl (Zofran Odt) 4 mg PO Q6H PRN PRN Reason: Nausea / Vomiting Stop: 08/20/17 14:46 Patient Own Med- Tivicay ( Dolutegravir) 50mg Tab 1 PO BID [facility] Stop: 08/20/17 16:59 Last Admin: 06/28/17 08:48 Dose: 1 Tamsulosin HCl (Flomax) 0.4 mg PO HS [facility] Stop: 08/20/17 20:59 Last Admin: 06/27/17 20:41 Dose: 0.4 mg Thiamine HCl (Vitamin B1) 100 mg PO DAILY [facility] Stop: 08/21/17 08:59 Last Admin: 06/28/17 08:50 Dose: 100 mg Vitamin D (Vitamin D3) 2,000 iu PO DAILY [facility] Stop: 08/21/17 08:59 Last Admin: 06/28/17 08:49 Dose: 2,000 iu Zolpidem Tartrate (Ambien) 5 mg PO HS PRN PRN Reason: Insomnia Stop: 08/20/17 14:46 Last Admin: 06/27/17 20:41 Dose: 5 mg General: Alert Cardiovascular: Regular rate Lungs: Clear to auscultation Assessment/Plan - Problem List Patient Problems: All Active Problems Diastolic CHF (Acute) I50.30 HIV (human immunodeficiency virus infection) (Acute) History of appendectomy (Acute) Z98.890, Z90.49 History of left knee replacement (Acute) Z96.652 History of tonsillectomy (Acute) Z98.890, Z90.89 Major depressive disorder (Acute) F32.9 Peripheral neuropathy (Acute) G62.9 Polysubstance abuse (Acute) F19.10 RESECTION OF BRAIN TUMOR (Acute) Rheumatoid arthritis (Acute) M06.9 - Assessment Assessment: HIV Myalgia BPH Mental health disorder - Plan Plan: Continue current treatment Lab reviewed Alexi hernandez Psych managment per Psychiatrist Nutritional Asmnt/Malnutr-PDOC - Dietary Evaluation Malnutrition Findings (Please click <Entered> for more info): Nutritional Asmnt/Malnutrition Start: 06/26/17 09: 55 Text: Status: Complete Freq: Document 06/26/17 09:56 CEDRIC (Rec: 06/26/17 10:19 [email or web address]- [id number]) Nutritional Asmnt/Malnutrition Patient General Information Nutritional Screening Moderate Risk Diagnosis Major depressive disorder Pertinent Medical Hx/Surgical Hx HIV, Hepatitis C, BPH, Peripheral neuropathy Subjective Information Patient was eating lunch at time of visit. No issues with current diet. Current Diet Order/ Nutrition Support Mechanical Soft Chopped Patient / S.O Not Indicated Pertinent Medications Maalox, Pepcid, iron, MOM, zofran, Vitamin B1, Vitamin D3 Pertinent Labs 06/24: Na 130, AST 102, ALT 56 , Alkaline Phosphatase 340, ALbumin 2.6 Nutritional Hx/Data Height 1.83 m Height (Calculated Centimeters) 182.9 Current Weight (lbs) 65.771 kg Weight (Calculated Kilograms) 65.8 Weight (Calculated Grams) 19391.9 [place] Body Weight 178 % [place] Body Weight 81 Body Mass Index (BMI) 19.6 Recent Weight Change No Weight Status Approriate GI Symptoms GI Symptoms None Last BM None noted since admission Difficult in: None Food Allergies No Cultural/Ethnic/Church Belief None indicated Usual diet at home Mechanical Soft, Chopped Skin Integrity/Comment: Kaushal, Michael 18 Current %PO Good (75-100%) Estimated Nutritional Goals BEE in Kcals: Using Current wt Calories/Kcals/Kg 65.8kg Current weight: 27-32 kcal/kg - increased d/t <IBW Kcals Calculated ~7512-6700 kcal/day Protein: Using Current wt Protein g/k-1.2 gm/kg Protein Calculated ~65-75 gm/day Fluid: ml ~3688-9233 ml/day (30-35 ml/kg ) Nutritional Problem 1. Problem Problem Altered nutrition related lab values related to Etiology electrolyte imbalance aeb Signs/Symptoms: Na 130 Intervention/Recommendation Comments 1. Continue mechanical soft, chopped diet as tolerated by patient. 2. Consider fluid restriction if Na remains low. Expected Outcomes/Goals Expected Outcomes/Goals Na normalizes, oral intake remains adequate >75% of meals , weight stable or trends toward ideal body weight.
--- NOTE | 2017-06-29 01:54 | Progress Notes ---
DATE: 06/28/2017 SUBJECTIVE: Staff was spoken to. The patient is interviewed. Mood is noted to be depressed. Affect is constricted. The patient continues to be isolative and withdrawn with very minimal participation in the groups. No side effects to medications are noted. ASSESSMENT: The patient is still depressed and suicidal. The patient has been focusing on his HIV status. The patient's coping skills are noted to be very poor. ASSESSMENT: The patient is depressed. PLAN: To continue patient with the supportive therapy and followup. JOB# [id number]
[2017-06-29] MEDS: TIVICAY 50 MG PO SCH ×2 (08:37→16:31)
[2017-06-29] MEDS: Ferrous Sulfate 325 MG TAB PO SCH (08:37)
[2017-06-29] MEDS: Vitamin D3 2,000 IU SGL PO SCH (08:37)
--- NOTE | 2017-06-29 23:50 | Infectious Disease Prog Note ---
Infectious Disease Subjective - Review of Systems Service Date: 06/29/17 Subjective: Doing well. Infectious Disease Objective - Results Result Diagrams: 06/24/17 06:57 06/24/17 06:57 Recent Labs: Laboratory Last Values WBC 5.8 Th/cmm (4.8-10.8) 06/24/17 06:57 RBC 4.50 Mil/cmm (3.80-5.80) 06/24/17 06:57 Hgb 12.5 gm/dL (12-16) 06/24/17 06:57 Hct 36.9 % (41.0-60) L 06/24/17 06:57 MCV 82.0 fl (80-99) 06/24/17 06:57 MCH 27.7 pg (27.0-31.0) 06/24/17 06:57 MCHC Differential 33.8 pg (28.0-36.0) 06/24/17 06:57 RDW 15.2 % (11.5-20.0) 06/24/17 06:57 Plt Count 193 Th/cmm (150-400) 06/24/17 06:57 MPV 9.1 fl 06/24/17 06:57 Neutrophils % 71.3 % (40.0-80.0) 06/24/17 06:57 Lymphocytes % 14.3 % (20.0-50.0) L 06/24/17 06:57 Monocytes % 6.3 % (2.0-10.0) 06/24/17 06:57 Eosinophils % 7.7 % (0.0-5.0) H 06/24/17 06:57 Basophils % 0.4 % (0.0-2.0) 06/24/17 06:57 Sodium 130 mEq/L (136-145) L 06/24/17 06:57 Potassium 4.0 mEq/L (3.5-5.1) 06/24/17 06:57 Chloride 99 mEq/L (98-107) 06/24/17 06:57 Carbon Dioxide 24.9 mEq/L (21.0-31.0) 06/24/17 06:57 Anion Gap 10.1 (7.0-16.0) 06/24/17 06:57 BUN 17 mg/dL (7-25) 06/24/17 06:57 Creatinine 0.6 mg/dL (0.7-1.3) L 06/24/17 06:57 Est GFR ( Amer) > 60.0 ml/min (>90) 06/24/17 06:57 Est GFR (Non-Af Amer) > 60.0 ml/min 06/24/17 06:57 BUN/Creatinine Ratio 28.3 06/24/17 06:57 Glucose 91 mg/dL (70-105) 06/24/17 06:57 Calcium 8.5 mg/dL (8.6-10.3) L 06/24/17 06:57 Total Bilirubin 1.6 mg/dL (0.3-1.0) H 06/24/17 06:57 AST 102 U/L (13-39) H 06/24/17 06:57 ALT 56 U/L (7-52) H 06/24/17 06:57 Alkaline Phosphatase 340 U/L (34-104) H 06/24/17 06:57 Total Protein 5.8 gm/dL (6.0-8.3) L 06/24/17 06:57 Albumin 2.6 gm/dL (4.2-5.5) L 06/24/17 06:57 Globulin 3.2 gm/dL 06/24/17 06:57 Albumin/Globulin Ratio 0.8 (1.0-1.8) L 06/24/17 06:57 Tumor Marker AFP 16.9 ng/mL (0.0-8.3) H 06/24/17 06:57 Absolute CD4 Count SEE REF. LAB REPORT 06/24/17 06:57 Hepatitis A IgM Ab Negative (Negative) 06/24/17 06:57 Hep Bs Antigen Negative (Negative) 06/24/17 06:57 Hep Bs Antibody, Quant SEE REF. LAB REPORT 06/24/17 06:57 Hep B Core Total Ab SEE REF. LAB REPORT 06/24/17 06:57 Hep B Core IgM Ab Negative (Negative) 06/24/17 06:57 Hepatitis C Antibody 0.1 s/co ratio (0.0-0.9) 06/24/17 06:57 HIV 1&2 Antibody Screen POSITIVE (NEG) H 06/24/17 06:57 HIV (1&2) Ab Confirm SEE REF. LAB REPORT 06/24/17 06:57 - Physical Exam Vitals and I&O: Vital Signs Temp 97.4 F 06/29/17 14:00 Pulse 83 06/29/17 14:00 Resp 18 06/29/17 14:00 BP 119/76 06/29/17 14:00 Pulse Ox 96 06/29/17 14:00 Intake & Output 06/29/17 06/29/17 06/30/17 06:59 18:59 06:59 Intake Total 120 1200 Balance 120 1200 Intake: Oral 120 1200 Other: # Voids 3 3 Active Medications: Current Medications Acetaminophen (Tylenol) 650 mg PO Q4H PRN PRN Reason: Mild Pain/Headache/T above 101 Stop: 08/20/17 14:46 Last Admin: 06/28/17 13:31 Dose: 650 mg Al Hydrox/Mg Hydrox/Simethicone (Maalox) 30 ml PO Q6H PRN PRN Reason: Dyspepsia Stop: 08/20/17 14:46 Aripiprazole (Abilify) 15 mg PO DAILY [facility] PRN Reason: Protocol Stop: 08/21/17 08:59 Last Admin: 06/29/17 08:37 Dose: 15 mg Aspirin (Ecotrin) 81 mg PO DAILY [facility] Stop: 08/21/17 08:59 Last Admin: 06/29/17 08:37 Dose: 81 mg Escitalopram Oxalate (Lexapro) 20 mg PO DAILY [facility] PRN Reason: Protocol Stop: 08/22/17 08:59 Famotidine (Pepcid) 20 mg PO BID [facility] Stop: 08/20/17 16:59 Last Admin: 06/29/17 16:31 Dose: 20 mg Ferrous Sulfate (Iron) 325 mg PO DAILY [facility] Stop: 08/21/17 08:59 Last Admin: 06/29/17 08:37 Dose: 325 mg Gabapentin (Neurontin) 800 mg PO TID [facility] Stop: 08/20/17 20:59 Last Admin: 06/29/17 20:49 Dose: 800 mg Ibuprofen (Motrin) 800 mg PO TID PRN PRN Reason: Pain (Moderate) Stop: 08/27/17 20:59 Last Admin: 06/29/17 16:42 Dose: 800 mg Lorazepam (Ativan) 0.5 mg PO Q4H PRN; Protocol PRN Reason: Anxiety/Agitation Stop: 08/20/17 14:46 Magnesium Hydroxide (Milk Of Magnesia) 30 ml PO DAILY PRN PRN Reason: Constipation Stop: 08/20/17 14:46 Miscellaneous (Maraviroc [Selzentry]) 300 mg PO BID [facility] Stop: 08/20/17 16:59 Ondansetron HCl (Zofran Odt) 4 mg PO Q6H PRN PRN Reason: Nausea / Vomiting Stop: 08/20/17 14:46 Patient Own Med- Tivicay ( Dolutegravir) 50mg Tab 1 PO BID [facility] Stop: 08/20/17 16:59 Last Admin: 06/29/17 16:31 Dose: 1 Tamsulosin HCl (Flomax) 0.4 mg PO HS [facility] Stop: 08/20/17 20:59 Last Admin: 06/29/17 20:49 Dose: 0.4 mg Thiamine HCl (Vitamin B1) 100 mg PO DAILY [facility] Stop: 08/21/17 08:59 Last Admin: 06/29/17 08:37 Dose: 100 mg Vitamin D (Vitamin D3) 2,000 iu PO DAILY [facility] Stop: 08/21/17 08:59 Last Admin: 06/29/17 08:37 Dose: 2,000 iu Zolpidem Tartrate (Ambien) 5 mg PO HS PRN PRN Reason: Insomnia Stop: 08/20/17 14:46 Last Admin: 06/29/17 22:11 Dose: 5 mg General: no acute distress HEENT: atraumatic, normocephalic, PERRLA, EOMI, moist mucous membrane Neck: supple, no thyromegaly, no lymphadenopathy Cardiovascular: S1S2, regular Lungs: clear to auscultation bilaterally, clear to percussion Abdomen: soft, no tender, no distended Extremities: no cyanosis, no clubbing, no edema Neurological: awake, alert, oriented Skin: intact Infectious Disease Assmt/Plan - Problem List Patient Problems: All Active Problems Diastolic CHF (Acute) I50.30 HIV (human immunodeficiency virus infection) (Acute) History of appendectomy (Acute) Z98.890, Z90.49 History of left knee replacement (Acute) Z96.652 History of tonsillectomy (Acute) Z98.890, Z90.89 Major depressive disorder (Acute) F32.9 Peripheral neuropathy (Acute) G62.9 Polysubstance abuse (Acute) F19.10 RESECTION OF BRAIN TUMOR (Acute) Rheumatoid arthritis (Acute) M06.9 - Assessment Assessment: IMPRESSION: 1. Human immunodeficiency virus, as per the patient, he is stable, doing well. 2. Depression. 3. Generalized weakness. RECOMMENDATIONS: Continue the same medication of Tivicay and Maraviroc. May get records from his HIV provider. Meanwhile, check CD4 count and HIV viral load. Check hepatitis C panel and alpha-fetoprotein. Nutritional Asmnt/Malnutr-PDOC - Dietary Evaluation Malnutrition Findings (Please click <Entered> for more info): Nutritional Asmnt/Malnutrition Start: 06/26/17 09: 55 Text: Status: Complete Freq: Document 06/26/17 09:56 CEDRIC (Rec: 06/26/17 10:19 [email or web address] [email or web address]- [id number]) Nutritional Asmnt/Malnutrition Patient General Information Nutritional Screening Moderate Risk Diagnosis Major depressive disorder Pertinent Medical Hx/Surgical Hx HIV, Hepatitis C, BPH, Peripheral neuropathy Subjective Information Patient was eating lunch at time of visit. No issues with current diet. Current Diet Order/ Nutrition Support Mechanical Soft Chopped Patient / S.O Not Indicated Pertinent Medications Maalox, Pepcid, iron, MOM, zofran, Vitamin B1, Vitamin D3 Pertinent Labs 06/24: Na 130, AST 102, ALT 56 , Alkaline Phosphatase 340, ALbumin 2.6 Nutritional Hx/Data Height 1.83 m Height (Calculated Centimeters) 182.9 Current Weight (lbs) 65.771 kg Weight (Calculated Kilograms) 65.8 Weight (Calculated Grams) 64611.9 [place] Body Weight 178 % [place] Body Weight 81 Body Mass Index (BMI) 19.6 Recent Weight Change No Weight Status Approriate GI Symptoms GI Symptoms None Last BM None noted since admission Difficult in: None Food Allergies No Cultural/Ethnic/Confucianist Belief None indicated Usual diet at home Mechanical Soft, Chopped Skin Integrity/Comment: Michael Easley 18 Current %PO Good (75-100%) Estimated Nutritional Goals BEE in Kcals: Using Current wt Calories/Kcals/Kg 65.8kg Current weight: 27-32 kcal/kg - increased d/t <IBW Kcals Calculated ~4585-5695 kcal/day Protein: Using Current wt Protein g/k-1.2 gm/kg Protein Calculated ~65-75 gm/day Fluid: ml ~0574-5809 ml/day (30-35 ml/kg ) Nutritional Problem 1. Problem Problem Altered nutrition related lab values related to Etiology electrolyte imbalance aeb Signs/Symptoms: Na 130 Intervention/Recommendation Comments 1. Continue mechanical soft, chopped diet as tolerated by patient. 2. Consider fluid restriction if Na remains low. Expected Outcomes/Goals Expected Outcomes/Goals Na normalizes, oral intake remains adequate >75% of meals , weight stable or trends toward ideal body weight.
--- NOTE | 2017-06-30 00:41 | Progress Notes ---
DATE: 06/29/2017 SUBJECTIVE: Staff was spoken to. The patient is interviewed. Mood is noted to be depressed. Affect is constricted. Coping skills are noted to be still poor. Sleep and appetite also noted to be limited. The patient has been stating that he has been getting a little bit energy and has been able to get up and walk. No side effects to the medications are noted. The patient is currently on 10 mg of the Lexapro. PLAN: To increase the dose to 20 mg and follow the patient with the supportive therapy. JOB# [id number]
[2017-06-30] MEDS: TIVICAY 50 MG PO SCH ×2 (09:36→17:42)
[2017-06-30] MEDS: Vitamin D3 2,000 IU SGL PO SCH (09:36)
[2017-06-30] MEDS: Ferrous Sulfate 325 MG TAB PO SCH (09:37)
--- NOTE | 2017-06-30 14:25 | Infectious Disease Prog Note ---
Infectious Disease Subjective - Review of Systems Service Date: 06/30/17 Subjective: Doing well. Infectious Disease Objective - Results Result Diagrams: 06/24/17 06:57 06/24/17 06:57 Recent Labs: Laboratory Last Values WBC 5.8 Th/cmm (4.8-10.8) 06/24/17 06:57 RBC 4.50 Mil/cmm (3.80-5.80) 06/24/17 06:57 Hgb 12.5 gm/dL (12-16) 06/24/17 06:57 Hct 36.9 % (41.0-60) L 06/24/17 06:57 MCV 82.0 fl (80-99) 06/24/17 06:57 MCH 27.7 pg (27.0-31.0) 06/24/17 06:57 MCHC Differential 33.8 pg (28.0-36.0) 06/24/17 06:57 RDW 15.2 % (11.5-20.0) 06/24/17 06:57 Plt Count 193 Th/cmm (150-400) 06/24/17 06:57 MPV 9.1 fl 06/24/17 06:57 Neutrophils % 71.3 % (40.0-80.0) 06/24/17 06:57 Lymphocytes % 14.3 % (20.0-50.0) L 06/24/17 06:57 Monocytes % 6.3 % (2.0-10.0) 06/24/17 06:57 Eosinophils % 7.7 % (0.0-5.0) H 06/24/17 06:57 Basophils % 0.4 % (0.0-2.0) 06/24/17 06:57 Sodium 130 mEq/L (136-145) L 06/24/17 06:57 Potassium 4.0 mEq/L (3.5-5.1) 06/24/17 06:57 Chloride 99 mEq/L (98-107) 06/24/17 06:57 Carbon Dioxide 24.9 mEq/L (21.0-31.0) 06/24/17 06:57 Anion Gap 10.1 (7.0-16.0) 06/24/17 06:57 BUN 17 mg/dL (7-25) 06/24/17 06:57 Creatinine 0.6 mg/dL (0.7-1.3) L 06/24/17 06:57 Est GFR ( Amer) > 60.0 ml/min (>90) 06/24/17 06:57 Est GFR (Non-Af Amer) > 60.0 ml/min 06/24/17 06:57 BUN/Creatinine Ratio 28.3 06/24/17 06:57 Glucose 91 mg/dL (70-105) 06/24/17 06:57 Calcium 8.5 mg/dL (8.6-10.3) L 06/24/17 06:57 Total Bilirubin 1.6 mg/dL (0.3-1.0) H 06/24/17 06:57 AST 102 U/L (13-39) H 06/24/17 06:57 ALT 56 U/L (7-52) H 06/24/17 06:57 Alkaline Phosphatase 340 U/L (34-104) H 06/24/17 06:57 Total Protein 5.8 gm/dL (6.0-8.3) L 06/24/17 06:57 Albumin 2.6 gm/dL (4.2-5.5) L 06/24/17 06:57 Globulin 3.2 gm/dL 06/24/17 06:57 Albumin/Globulin Ratio 0.8 (1.0-1.8) L 06/24/17 06:57 Tumor Marker AFP 16.9 ng/mL (0.0-8.3) H 06/24/17 06:57 Absolute CD4 Count SEE REF. LAB REPORT 06/24/17 06:57 Hepatitis A IgM Ab Negative (Negative) 06/24/17 06:57 Hep Bs Antigen Negative (Negative) 06/24/17 06:57 Hep Bs Antibody, Quant SEE REF. LAB REPORT 06/24/17 06:57 Hep B Core Total Ab SEE REF. LAB REPORT 06/24/17 06:57 Hep B Core IgM Ab Negative (Negative) 06/24/17 06:57 Hepatitis C Antibody 0.1 s/co ratio (0.0-0.9) 06/24/17 06:57 HIV 1&2 Antibody Screen POSITIVE (NEG) H 06/24/17 06:57 HIV (1&2) Ab Confirm SEE REF. LAB REPORT 06/24/17 06:57 - Physical Exam Vitals and I&O: Vital Signs Temp 97.5 F 06/30/17 06:32 Pulse 72 06/30/17 06:32 Resp 20 06/30/17 06:32 BP 132/78 06/30/17 06:32 Pulse Ox 98 06/30/17 06:32 Intake & Output 06/29/17 06/30/17 06/30/17 18:59 06:59 18:59 Intake Total 1200 120 Balance 1200 120 Intake: Oral 1200 120 Other: # Voids 3 3 Active Medications: Current Medications Acetaminophen (Tylenol) 650 mg PO Q4H PRN PRN Reason: Mild Pain/Headache/T above 101 Stop: 08/20/17 14:46 Last Admin: 06/28/17 13:31 Dose: 650 mg Al Hydrox/Mg Hydrox/Simethicone (Maalox) 30 ml PO Q6H PRN PRN Reason: Dyspepsia Stop: 08/20/17 14:46 Aripiprazole (Abilify) 15 mg PO DAILY ANGELA PRN Reason: Protocol Stop: 08/21/17 08:59 Last Admin: 06/30/17 09:37 Dose: 15 mg Aspirin (Ecotrin) 81 mg PO DAILY COUNTS INCLUDE 234 BEDS AT THE [facility] Stop: 08/21/17 08:59 Last Admin: 06/30/17 09:37 Dose: 81 mg Escitalopram Oxalate (Lexapro) 20 mg PO DAILY ANGELA PRN Reason: Protocol Stop: 08/22/17 08:59 Famotidine (Pepcid) 20 mg PO BID COUNTS INCLUDE 234 BEDS AT THE [facility] Stop: 08/20/17 16:59 Last Admin: 06/30/17 09:37 Dose: 20 mg Ferrous Sulfate (Iron) 325 mg PO DAILY COUNTS INCLUDE 234 BEDS AT THE [facility] Stop: 08/21/17 08:59 Last Admin: 06/30/17 09:37 Dose: 325 mg Gabapentin (Neurontin) 800 mg PO TID COUNTS INCLUDE 234 BEDS AT THE [facility] Stop: 08/20/17 20:59 Last Admin: 06/30/17 09:37 Dose: 800 mg Ibuprofen (Motrin) 800 mg PO TID PRN PRN Reason: Pain (Moderate) Stop: 08/27/17 20:59 Last Admin: 06/29/17 16:42 Dose: 800 mg Lorazepam (Ativan) 0.5 mg PO Q4H PRN; Protocol PRN Reason: Anxiety/Agitation Stop: 08/20/17 14:46 Magnesium Hydroxide (Milk Of Magnesia) 30 ml PO DAILY PRN PRN Reason: Constipation Stop: 08/20/17 14:46 Miscellaneous (Maraviroc [Selzentry]) 300 mg PO BID COUNTS INCLUDE 234 BEDS AT THE [facility] Stop: 08/20/17 16:59 Ondansetron HCl (Zofran Odt) 4 mg PO Q6H PRN PRN Reason: Nausea / Vomiting Stop: 08/20/17 14:46 Patient Own Med- Tivicay ( Dolutegravir) 50mg Tab 1 PO BID ANGELA Stop: 08/20/17 16:59 Last Admin: 06/30/17 09:36 Dose: 1 Tamsulosin HCl (Flomax) 0.4 mg PO HS ANGELA Stop: 08/20/17 20:59 Last Admin: 06/29/17 20:49 Dose: 0.4 mg Thiamine HCl (Vitamin B1) 100 mg PO DAILY ANGELA Stop: 08/21/17 08:59 Last Admin: 06/30/17 09:36 Dose: 100 mg Vitamin D (Vitamin D3) 2,000 iu PO DAILY ANGELA Stop: 08/21/17 08:59 Last Admin: 06/30/17 09:36 Dose: 2,000 iu Zolpidem Tartrate (Ambien) 5 mg PO HS PRN PRN Reason: Insomnia Stop: 08/20/17 14:46 Last Admin: 06/29/17 22:11 Dose: 5 mg General: no acute distress HEENT: atraumatic, normocephalic, PERRLA, EOMI, moist mucous membrane Neck: supple, no thyromegaly Cardiovascular: S1S2, regular Lungs: clear to auscultation bilaterally, clear to percussion Abdomen: soft, no tender, no distended, no mass Extremities: no cyanosis, no clubbing, no edema Neurological: awake, alert, oriented Skin: intact Infectious Disease Assmt/Plan - Problem List Patient Problems: All Active Problems Diastolic CHF (Acute) I50.30 HIV (human immunodeficiency virus infection) (Acute) History of appendectomy (Acute) Z98.890, Z90.49 History of left knee replacement (Acute) Z96.652 History of tonsillectomy (Acute) Z98.890, Z90.89 Major depressive disorder (Acute) F32.9 Peripheral neuropathy (Acute) G62.9 Polysubstance abuse (Acute) F19.10 RESECTION OF BRAIN TUMOR (Acute) Rheumatoid arthritis (Acute) M06.9 - Assessment Assessment: IMPRESSION: 1. Human immunodeficiency virus, as per the patient, he is stable, doing well. 2. Depression. 3. Generalized weakness. RECOMMENDATIONS: Continue the same medication of Tivicay and Maraviroc. May get records from his HIV provider. Meanwhile, check CD4 count and HIV viral load. Check hepatitis C panel and alpha-fetoprotein. As we do not have maraviroc/ patient is unable get the medication, will replace with presizta and norvir. Nutritional Asmnt/Malnutr-PDOC - Dietary Evaluation Malnutrition Findings (Please click <Entered> for more info): Nutritional Asmnt/Malnutrition Start: 06/26/17 09: 55 Text: Status: Complete Freq: Document 06/26/17 09:56 [email or web address] (Rec: 06/26/17 10:19 [email or web address] RIZO- [id number]) Nutritional Asmnt/Malnutrition Patient General Information Nutritional Screening Moderate Risk Diagnosis Major depressive disorder Pertinent Medical Hx/Surgical Hx HIV, Hepatitis C, BPH, Peripheral neuropathy Subjective Information Patient was eating lunch at time of visit. No issues with current diet. Current Diet Order/ Nutrition Support Mechanical Soft Chopped Patient / S.O Not Indicated Pertinent Medications Maalox, Pepcid, iron, MOM, zofran, Vitamin B1, Vitamin D3 Pertinent Labs 06/24: Na 130, AST 102, ALT 56 , Alkaline Phosphatase 340, ALbumin 2.6 Nutritional Hx/Data Height 1.83 m Height (Calculated Centimeters) 182.9 Current Weight (lbs) 65.771 kg Weight (Calculated Kilograms) 65.8 Weight (Calculated Grams) 24779.9 [place] Body Weight 178 % [place] Body Weight 81 Body Mass Index (BMI) 19.6 Recent Weight Change No Weight Status Approriate GI Symptoms GI Symptoms None Last BM None noted since admission Difficult in: None Food Allergies No Cultural/Ethnic/Mosque Belief None indicated Usual diet at home Mechanical Soft, Chopped Skin Integrity/Comment: Michael Easley 18 Current %PO Good (75-100%) Estimated Nutritional Goals BEE in Kcals: Using Current wt Calories/Kcals/Kg 65.8kg Current weight: 27-32 kcal/kg - increased d/t <IBW Kcals Calculated ~3244-6921 kcal/day Protein: Using Current wt Protein g/k-1.2 gm/kg Protein Calculated ~65-75 gm/day Fluid: ml ~6650-5470 ml/day (30-35 ml/kg ) Nutritional Problem 1. Problem Problem Altered nutrition related lab values related to Etiology electrolyte imbalance aeb Signs/Symptoms: Na 130 Intervention/Recommendation Comments 1. Continue mechanical soft, chopped diet as tolerated by patient. 2. Consider fluid restriction if Na remains low. Expected Outcomes/Goals Expected Outcomes/Goals Na normalizes, oral intake remains adequate >75% of meals , weight stable or trends toward ideal body weight.
[2017-06-30] MEDS: NORVIR 100MG TAB PO SCH (17:58)
[2017-06-30] MEDS: PREZISTA 600 MG PO SCH (17:58)
--- NOTE | 2017-06-30 22:21 | Progress Notes ---
DATE: 06/30/2017 SUBJECTIVE: Staff was spoken to. The patient is interviewed. Mood is noted to be anxious. The patient is isolated and withdrawn. The patient has suicidal ideation, but no plans are noted. The patient's coping skills are noted to be very poor. The patient is pleased that at least he is able to get up and then walk a little bit. ASSESSMENT: The patient is still depressed. PLAN: To continue the patient on the Lexapro and followup. JOB# [id number]
[2017-07-01] MEDS: TIVICAY 50 MG PO SCH ×2 (08:25→16:25)
[2017-07-01] MEDS: PREZISTA 600 MG PO SCH (08:27)
[2017-07-01] MEDS: NORVIR 100MG TAB PO SCH (08:28)
[2017-07-01] MEDS: Ferrous Sulfate 325 MG TAB PO SCH (08:30)
[2017-07-01] MEDS: Vitamin D3 2,000 IU SGL PO SCH (08:31)
--- NOTE | 2017-07-01 20:15 | Progress Notes ---
DATE: 07/01/2017 SUBJECTIVE: Staff was spoken to. The patient is interviewed. Mood is noted to be depressed. Affect is constricted. The patient has been getting up to some extent and has been trying to get into the groups. No side effects to the medications are noted. The patient has been able to tolerate the antidepressant medication, Lexapro. The patient's suicidal ideation is resolving. ASSESSMENT: The patient is still depressed. PLAN: To continue the patient with the supportive therapy and current medications and followup. [facility]# [id number]
[2017-07-02] MEDS: Ferrous Sulfate 325 MG TAB PO SCH (08:27)
[2017-07-02] MEDS: Vitamin D3 2,000 IU SGL PO SCH (08:28)
[2017-07-02] MEDS: PREZISTA 600 MG PO SCH (08:34)
[2017-07-02] MEDS: NORVIR 100MG TAB PO SCH (08:34)
[2017-07-02] MEDS: TIVICAY 50 MG PO SCH ×2 (08:35→16:17)
--- NOTE | 2017-07-02 13:40 | Progress Notes ---
DATE: 07/02/2017 SUBJECTIVE: Staff was spoken to. The patient is interviewed. Mood is noted to be irritable. Affect is constricted. Insight and judgment at this time are noted to be still impaired. Impulse control seems to be limited. Coping skills are noted to be limited. The patient is isolative and withdrawn. The patient has been having difficult time to cope with the stress. ASSESSMENT: The patient is still depressed, suicidal ideation is resolving. PLAN: To continue the patient with the current medications and followup. [facility]# [id number]
[2017-07-03] MEDS: TIVICAY 50 MG PO SCH ×2 (09:00→16:49)
[2017-07-03] MEDS: Ferrous Sulfate 325 MG TAB PO SCH (09:00)
[2017-07-03] MEDS: Vitamin D3 2,000 IU SGL PO SCH (09:00)
[2017-07-03] MEDS: NORVIR 100MG TAB PO SCH (09:00)
[2017-07-03] MEDS: PREZISTA 600 MG PO SCH (09:00)
--- NOTE | 2017-07-03 11:18 | Infectious Disease Prog Note ---
Infectious Disease Subjective - Review of Systems Service Date: 07/03/17 Subjective: Doing well. Infectious Disease Objective - Results Result Diagrams: 06/24/17 06:57 06/24/17 06:57 Recent Labs: Laboratory Last Values WBC 5.8 Th/cmm (4.8-10.8) 06/24/17 06:57 RBC 4.50 Mil/cmm (3.80-5.80) 06/24/17 06:57 Hgb 12.5 gm/dL (12-16) 06/24/17 06:57 Hct 36.9 % (41.0-60) L 06/24/17 06:57 MCV 82.0 fl (80-99) 06/24/17 06:57 MCH 27.7 pg (27.0-31.0) 06/24/17 06:57 MCHC Differential 33.8 pg (28.0-36.0) 06/24/17 06:57 RDW 15.2 % (11.5-20.0) 06/24/17 06:57 Plt Count 193 Th/cmm (150-400) 06/24/17 06:57 MPV 9.1 fl 06/24/17 06:57 Neutrophils % 71.3 % (40.0-80.0) 06/24/17 06:57 Lymphocytes % 14.3 % (20.0-50.0) L 06/24/17 06:57 Monocytes % 6.3 % (2.0-10.0) 06/24/17 06:57 Eosinophils % 7.7 % (0.0-5.0) H 06/24/17 06:57 Basophils % 0.4 % (0.0-2.0) 06/24/17 06:57 Sodium 130 mEq/L (136-145) L 06/24/17 06:57 Potassium 4.0 mEq/L (3.5-5.1) 06/24/17 06:57 Chloride 99 mEq/L (98-107) 06/24/17 06:57 Carbon Dioxide 24.9 mEq/L (21.0-31.0) 06/24/17 06:57 Anion Gap 10.1 (7.0-16.0) 06/24/17 06:57 BUN 17 mg/dL (7-25) 06/24/17 06:57 Creatinine 0.6 mg/dL (0.7-1.3) L 06/24/17 06:57 Est GFR ( Amer) > 60.0 ml/min (>90) 06/24/17 06:57 Est GFR (Non-Af Amer) > 60.0 ml/min 06/24/17 06:57 BUN/Creatinine Ratio 28.3 06/24/17 06:57 Glucose 91 mg/dL (70-105) 06/24/17 06:57 Calcium 8.5 mg/dL (8.6-10.3) L 06/24/17 06:57 Total Bilirubin 1.6 mg/dL (0.3-1.0) H 06/24/17 06:57 AST 102 U/L (13-39) H 06/24/17 06:57 ALT 56 U/L (7-52) H 06/24/17 06:57 Alkaline Phosphatase 340 U/L (34-104) H 06/24/17 06:57 Total Protein 5.8 gm/dL (6.0-8.3) L 06/24/17 06:57 Albumin 2.6 gm/dL (4.2-5.5) L 06/24/17 06:57 Globulin 3.2 gm/dL 06/24/17 06:57 Albumin/Globulin Ratio 0.8 (1.0-1.8) L 06/24/17 06:57 Tumor Marker AFP 16.9 ng/mL (0.0-8.3) H 06/24/17 06:57 Absolute CD4 Count SEE REF. LAB REPORT 06/24/17 06:57 RPR NONREACTIVE (NONREACTIVE) 06/24/17 06:57 Hepatitis A IgM Ab Negative (Negative) 06/24/17 06:57 Hep Bs Antigen Negative (Negative) 06/24/17 06:57 Hep Bs Antibody, Quant SEE REF. LAB REPORT 06/24/17 06:57 Hep B Core Total Ab SEE REF. LAB REPORT 06/24/17 06:57 Hep B Core IgM Ab Negative (Negative) 06/24/17 06:57 Hepatitis C Antibody 0.1 s/co ratio (0.0-0.9) 06/24/17 06:57 HIV 1&2 Antibody Screen POSITIVE (NEG) H 06/24/17 06:57 HIV (1&2) Ab Confirm SEE REF. LAB REPORT 06/24/17 06:57 - Physical Exam Vitals and I&O: Vital Signs Temp 97.8 F 07/03/17 06:15 Pulse 62 07/03/17 06:15 Resp 19 07/03/17 06:15 BP 140/78 07/03/17 06:15 Pulse Ox 96 07/03/17 06:15 Intake & Output 07/02/17 07/03/17 07/03/17 18:59 06:59 18:59 Intake Total 1200 360 Balance 1200 360 Intake: Oral 1200 360 Other: # Voids 3 1 # Bowel Movements 1 0 Active Medications: Current Medications Acetaminophen (Tylenol) 650 mg PO Q4H PRN PRN Reason: Mild Pain/Headache/T above 101 Stop: 08/20/17 14:46 Last Admin: 06/28/17 13:31 Dose: 650 mg Al Hydrox/Mg Hydrox/Simethicone (Maalox) 30 ml PO Q6H PRN PRN Reason: Dyspepsia Stop: 08/20/17 14:46 Aripiprazole (Abilify) 15 mg PO DAILY ANGELA PRN Reason: Protocol Stop: 08/21/17 08:59 Last Admin: 07/02/17 08:27 Dose: 15 mg Aspirin (Ecotrin) 81 mg PO DAILY [facility] Stop: 08/21/17 08:59 Last Admin: 07/02/17 08:27 Dose: 81 mg Escitalopram Oxalate (Lexapro) 20 mg PO DAILY ANGELA PRN Reason: Protocol Stop: 08/29/17 20:59 Last Admin: 07/02/17 08:27 Dose: 20 mg Famotidine (Pepcid) 20 mg PO BID [facility] Stop: 08/20/17 16:59 Last Admin: 07/02/17 16:17 Dose: 20 mg Ferrous Sulfate (Iron) 325 mg PO DAILY [facility] Stop: 08/21/17 08:59 Last Admin: 07/02/17 08:27 Dose: 325 mg Gabapentin (Neurontin) 800 mg PO TID [facility] Stop: 08/20/17 20:59 Last Admin: 07/02/17 20:10 Dose: 800 mg Ibuprofen (Motrin) 800 mg PO TID PRN PRN Reason: Pain (Moderate) Stop: 08/27/17 20:59 Last Admin: 07/02/17 16:18 Dose: 800 mg Lorazepam (Ativan) 0.5 mg PO Q4H PRN; Protocol PRN Reason: Anxiety/Agitation Stop: 08/20/17 14:46 Magnesium Hydroxide (Milk Of Magnesia) 30 ml PO DAILY PRN PRN Reason: Constipation Stop: 08/20/17 14:46 Miscellaneous (Misc Oral Tab) 1 tab PO DAILY ANGELA Stop: 08/29/17 17:59 Last Admin: 07/02/17 08:34 Dose: 1 tab Miscellaneous (Misc Oral Tab) 1.5 tab PO DAILY ANGELA Stop: 08/29/17 17:59 Last Admin: 07/02/17 08:34 Dose: 1.5 tab Ondansetron HCl (Zofran Odt) 4 mg PO Q6H PRN PRN Reason: Nausea / Vomiting Stop: 08/20/17 14:46 Patient Own Med- Tivicay ( Dolutegravir) 50mg Tab 1 PO BID ANGELA Stop: 08/20/17 16:59 Last Admin: 07/02/17 16:17 Dose: 1 Tamsulosin HCl (Flomax) 0.4 mg PO HS ANGELA Stop: 08/20/17 20:59 Last Admin: 07/02/17 20:11 Dose: Not Given Thiamine HCl (Vitamin B1) 100 mg PO DAILY [facility] Stop: 08/21/17 08:59 Last Admin: 07/02/17 08:28 Dose: 100 mg Vitamin D (Vitamin D3) 2,000 iu PO DAILY ANGELA Stop: 08/21/17 08:59 Last Admin: 07/02/17 08:28 Dose: 2,000 iu Zolpidem Tartrate (Ambien) 5 mg PO HS PRN PRN Reason: Insomnia Stop: 08/20/17 14:46 Last Admin: 07/02/17 20:11 Dose: 5 mg General: no acute distress, well developed, well nourished HEENT: atraumatic, normocephalic, PERRLA Neck: supple, thyromegaly Cardiovascular: S1S2, regular Lungs: clear to auscultation bilaterally, clear to percussion Abdomen: soft, no tender, no distended, no mass Extremities: no cyanosis, no clubbing, no edema Neurological: awake, alert, oriented Skin: intact Infectious Disease Assmt/Plan - Problem List Patient Problems: All Active Problems Diastolic CHF (Acute) I50.30 HIV (human immunodeficiency virus infection) (Acute) History of appendectomy (Acute) Z98.890, Z90.49 History of left knee replacement (Acute) Z96.652 History of tonsillectomy (Acute) Z98.890, Z90.89 Major depressive disorder (Acute) F32.9 Peripheral neuropathy (Acute) G62.9 Polysubstance abuse (Acute) F19.10 RESECTION OF BRAIN TUMOR (Acute) Rheumatoid arthritis (Acute) M06.9 - Assessment Assessment: IMPRESSION: 1. Human immunodeficiency virus, as per the patient, he is stable, doing well. 2. Depression. 3. Generalized weakness. RECOMMENDATIONS: Continue the same medication of Tivicay and Maraviroc. May get records from his HIV provider. Meanwhile, check CD4 count and HIV viral load. Check hepatitis C panel and alpha-fetoprotein. As we do not have maraviroc/ patient is unable get the medication, will replace with presizta and norvir. Nutritional Asmnt/Malnutr-PDOC - Dietary Evaluation Malnutrition Findings (Please click <Entered> for more info): Nutritional Asmnt/Malnutrition Start: 06/26/17 09: 55 Text: Status: Complete Freq: Document 06/26/17 09:56 CEDRIC (Rec: 06/26/17 10:19 [email or web address] RIZO- [id number]) Nutritional Asmnt/Malnutrition Patient General Information Nutritional Screening Moderate Risk Diagnosis Major depressive disorder Pertinent Medical Hx/Surgical Hx HIV, Hepatitis C, BPH, Peripheral neuropathy Subjective Information Patient was eating lunch at time of visit. No issues with current diet. Current Diet Order/ Nutrition Support Mechanical Soft Chopped Patient / S.O Not Indicated Pertinent Medications Maalox, Pepcid, iron, MOM, zofran, Vitamin B1, Vitamin D3 Pertinent Labs 06/24: Na 130, AST 102, ALT 56 , Alkaline Phosphatase 340, ALbumin 2.6 Nutritional Hx/Data Height 1.83 m Height (Calculated Centimeters) 182.9 Current Weight (lbs) 65.771 kg Weight (Calculated Kilograms) 65.8 Weight (Calculated Grams) 04409.9 [place] Body Weight 178 % [place] Body Weight 81 Body Mass Index (BMI) 19.6 Recent Weight Change No Weight Status Approriate GI Symptoms GI Symptoms None Last BM None noted since admission Difficult in: None Food Allergies No Cultural/Ethnic/Nondenominational Belief None indicated Usual diet at home Mechanical Soft, Chopped Skin Integrity/Comment: Intact, Michael 18 Current %PO Good (75-100%) Estimated Nutritional Goals BEE in Kcals: Using Current wt Calories/Kcals/Kg 65.8kg Current weight: 27-32 kcal/kg - increased d/t <IBW Kcals Calculated ~6101-7426 kcal/day Protein: Using Current wt Protein g/k-1.2 gm/kg Protein Calculated ~65-75 gm/day Fluid: ml ~6103-4619 ml/day (30-35 ml/kg ) Nutritional Problem 1. Problem Problem Altered nutrition related lab values related to Etiology electrolyte imbalance aeb Signs/Symptoms: Na 130 Intervention/Recommendation Comments 1. Continue mechanical soft, chopped diet as tolerated by patient. 2. Consider fluid restriction if Na remains low. Expected Outcomes/Goals Expected Outcomes/Goals Na normalizes, oral intake remains adequate >75% of meals , weight stable or trends toward ideal body weight.
--- NOTE | 2017-07-03 21:47 | Progress Notes ---
DATE: 07/03/2017 SUBJECTIVE: Staff was spoken to. The patient is interviewed. Mood is noted to be depressed. Affect is constricted. The patient has been talking about his . Coping skills are noted to be extremely poor. The patient has been having a difficult time to cope with the stress. No side effects to the medications are noted. The patient is currently on the Lexapro and has been able to tolerate the medication. ASSESSMENT: The patient is still depressed and suicidal. PLAN: To continue the patient with the supportive therapy, I encouraged the patient to verbalize the concerns rather than to act out. JOB# [id number]
[2017-07-04] MEDS: Vitamin D3 2,000 IU SGL PO SCH (09:55)
[2017-07-04] MEDS: Ferrous Sulfate 325 MG TAB PO SCH (09:55)
[2017-07-04] MEDS: PREZISTA 600 MG PO SCH (09:57)
[2017-07-04] MEDS: NORVIR 100MG TAB PO SCH (09:58)
[2017-07-04] MEDS: TIVICAY 50 MG PO SCH ×2 (09:59→17:06)
--- NOTE | 2017-07-04 23:28 | Progress Notes ---
DATE: 07/04/2017 SUBJECTIVE: Supple spoken to. Patient is interviewed. Mood is noted to be anxious. Affect is constricted. Insight and judgment are noted to be still impaired. Impulse control seems to be poor. Coping skills are noted to be poor. The patient has been having a difficult time to cope with the stress. No side effects to the medications are noted at this time. The patient has been mentioning that the medication is making him to be too sleepy, and he has been having a difficult time to stay up to get into the group. The patient is currently on 15 mg on the Abilify. Plan to decrease it to 10 mg. Continue the patient with Lexapro, and follow the patient with the supportive therapy. The patient is denying any auditory hallucinations. No delusions are noted. ASSESSMENT: The patient is still depressed. Plan to continue the patient with the supportive therapy and followup. JOB# [id number]
[2017-07-05] MEDS: Vitamin D3 2,000 IU SGL PO SCH (09:53)
[2017-07-05] MEDS: Ferrous Sulfate 325 MG TAB PO SCH (09:54)
[2017-07-05] MEDS: PREZISTA 600 MG PO SCH (09:55)
[2017-07-05] MEDS: TIVICAY 50 MG PO SCH (09:58)
[2017-07-05] MEDS: NORVIR 100MG TAB PO SCH (09:58)
--- NOTE | 2017-07-05 17:19 | Progress Notes ---
DATE: 07/05/2017 SUBJECTIVE: Staff was spoken to. The patient is interviewed. Mood is noted to be anxious. The patient's depression is resolving. The patient's suicidal ideation is also resolving. No side effects to the medications are noted. The patient is able to tolerate the Lexapro. ASSESSMENT: The patient is stabilizing. PLAN: To closely work with the bottle caser and try to look for placement for this patient. JOB# [id number]
--- NOTE | 2017-07-05 23:55 | Infectious Disease Prog Note ---
Infectious Disease Subjective - Review of Systems Service Date: 07/05/17 Subjective: Doing well. Infectious Disease Objective - Results Result Diagrams: 06/24/17 06:57 06/24/17 06:57 Recent Labs: Laboratory Last Values WBC 5.8 Th/cmm (4.8-10.8) 06/24/17 06:57 RBC 4.50 Mil/cmm (3.80-5.80) 06/24/17 06:57 Hgb 12.5 gm/dL (12-16) 06/24/17 06:57 Hct 36.9 % (41.0-60) L 06/24/17 06:57 MCV 82.0 fl (80-99) 06/24/17 06:57 MCH 27.7 pg (27.0-31.0) 06/24/17 06:57 MCHC Differential 33.8 pg (28.0-36.0) 06/24/17 06:57 RDW 15.2 % (11.5-20.0) 06/24/17 06:57 Plt Count 193 Th/cmm (150-400) 06/24/17 06:57 MPV 9.1 fl 06/24/17 06:57 Neutrophils % 71.3 % (40.0-80.0) 06/24/17 06:57 Lymphocytes % 14.3 % (20.0-50.0) L 06/24/17 06:57 Monocytes % 6.3 % (2.0-10.0) 06/24/17 06:57 Eosinophils % 7.7 % (0.0-5.0) H 06/24/17 06:57 Basophils % 0.4 % (0.0-2.0) 06/24/17 06:57 Sodium 130 mEq/L (136-145) L 06/24/17 06:57 Potassium 4.0 mEq/L (3.5-5.1) 06/24/17 06:57 Chloride 99 mEq/L (98-107) 06/24/17 06:57 Carbon Dioxide 24.9 mEq/L (21.0-31.0) 06/24/17 06:57 Anion Gap 10.1 (7.0-16.0) 06/24/17 06:57 BUN 17 mg/dL (7-25) 06/24/17 06:57 Creatinine 0.6 mg/dL (0.7-1.3) L 06/24/17 06:57 Est GFR ( Amer) > 60.0 ml/min (>90) 06/24/17 06:57 Est GFR (Non-Af Amer) > 60.0 ml/min 06/24/17 06:57 BUN/Creatinine Ratio 28.3 06/24/17 06:57 Glucose 91 mg/dL (70-105) 06/24/17 06:57 Calcium 8.5 mg/dL (8.6-10.3) L 06/24/17 06:57 Total Bilirubin 1.6 mg/dL (0.3-1.0) H 06/24/17 06:57 AST 102 U/L (13-39) H 06/24/17 06:57 ALT 56 U/L (7-52) H 06/24/17 06:57 Alkaline Phosphatase 340 U/L (34-104) H 06/24/17 06:57 Total Protein 5.8 gm/dL (6.0-8.3) L 06/24/17 06:57 Albumin 2.6 gm/dL (4.2-5.5) L 06/24/17 06:57 Globulin 3.2 gm/dL 06/24/17 06:57 Albumin/Globulin Ratio 0.8 (1.0-1.8) L 06/24/17 06:57 Tumor Marker AFP 16.9 ng/mL (0.0-8.3) H 06/24/17 06:57 Absolute CD4 Count SEE REF. LAB REPORT 06/24/17 06:57 RPR NONREACTIVE (NONREACTIVE) 06/24/17 06:57 Hepatitis A IgM Ab Negative (Negative) 06/24/17 06:57 Hep Bs Antigen Negative (Negative) 06/24/17 06:57 Hep Bs Antibody, Quant SEE REF. LAB REPORT 06/24/17 06:57 Hep B Core Total Ab SEE REF. LAB REPORT 06/24/17 06:57 Hep B Core IgM Ab Negative (Negative) 06/24/17 06:57 Hepatitis C Antibody 0.1 s/co ratio (0.0-0.9) 06/24/17 06:57 HIV 1&2 Antibody Screen POSITIVE (NEG) H 06/24/17 06:57 HIV (1&2) Ab Confirm SEE REF. LAB REPORT 06/24/17 06:57 - Physical Exam Vitals and I&O: Vital Signs Temp 98.8 F 07/05/17 20:00 Pulse 75 07/05/17 20:00 Resp 20 07/05/17 20:00 BP 140/65 07/05/17 20:00 Pulse Ox 98 07/05/17 20:00 Intake & Output 07/05/17 07/05/17 07/06/17 06:59 18:59 06:59 Intake Total 370 900 Balance 370 900 Intake: Oral 370 900 Other: # Voids 1 4 # Bowel Movements 0 1 Active Medications: Current Medications Acetaminophen (Tylenol) 650 mg PO Q4H PRN PRN Reason: Mild Pain/Headache/T above 101 Stop: 08/20/17 14:46 Last Admin: 06/28/17 13:31 Dose: 650 mg Al Hydrox/Mg Hydrox/Simethicone (Maalox) 30 ml PO Q6H PRN PRN Reason: Dyspepsia Stop: 08/20/17 14:46 Aripiprazole (Abilify) 10 mg PO DAILY [facility] Stop: 09/03/17 08:59 Last Admin: 07/05/17 09:53 Dose: 10 mg Aspirin (Ecotrin) 81 mg PO DAILY [facility] Stop: 08/21/17 08:59 Last Admin: 07/05/17 09:54 Dose: 81 mg Escitalopram Oxalate (Lexapro) 20 mg PO DAILY [facility] PRN Reason: Protocol Stop: 08/29/17 20:59 Last Admin: 07/05/17 09:54 Dose: 20 mg Famotidine (Pepcid) 20 mg PO BID [facility] Stop: 08/20/17 16:59 Last Admin: 07/05/17 18:08 Dose: 20 mg Ferrous Sulfate (Iron) 325 mg PO DAILY [facility] Stop: 08/21/17 08:59 Last Admin: 07/05/17 09:54 Dose: 325 mg Gabapentin (Neurontin) 800 mg PO TID [facility] Stop: 08/20/17 20:59 Last Admin: 07/05/17 20:59 Dose: 800 mg Ibuprofen (Motrin) 800 mg PO TID PRN PRN Reason: Pain (Moderate) Stop: 08/27/17 20:59 Last Admin: 07/05/17 18:06 Dose: 800 mg Lorazepam (Ativan) 0.5 mg PO Q4H PRN; Protocol PRN Reason: Anxiety/Agitation Stop: 08/20/17 14:46 Magnesium Hydroxide (Milk Of Magnesia) 30 ml PO DAILY PRN PRN Reason: Constipation Stop: 08/20/17 14:46 Miscellaneous (Misc Oral Tab) 1 tab PO DAILY [facility] Stop: 08/29/17 17:59 Last Admin: 07/05/17 09:58 Dose: 1 tab Miscellaneous (Misc Oral Tab) 1.5 tab PO DAILY [facility] Stop: 08/29/17 17:59 Last Admin: 07/05/17 09:55 Dose: 1.5 tab Ondansetron HCl (Zofran Odt) 4 mg PO Q6H PRN PRN Reason: Nausea / Vomiting Stop: 08/20/17 14:46 Patient Own Med- Tivicay ( Dolutegravir) 50mg Tab 1 PO BID [facility] Stop: 08/20/17 16:59 Last Admin: 07/05/17 09:58 Dose: 1 Tamsulosin HCl (Flomax) 0.4 mg PO HS [facility] Stop: 08/20/17 20:59 Last Admin: 07/05/17 20:59 Dose: 0.4 mg Thiamine HCl (Vitamin B1) 100 mg PO DAILY [facility] Stop: 08/21/17 08:59 Last Admin: 07/05/17 09:53 Dose: 100 mg Vitamin D (Vitamin D3) 2,000 iu PO DAILY [facility] Stop: 08/21/17 08:59 Last Admin: 07/05/17 09:53 Dose: 2,000 iu Zolpidem Tartrate (Ambien) 5 mg PO HS PRN PRN Reason: Insomnia Stop: 08/20/17 14:46 Last Admin: 07/05/17 21:07 Dose: 5 mg General: no acute distress, well developed, well nourished HEENT: atraumatic, normocephalic, PERRLA Neck: supple, no thyromegaly Cardiovascular: S1S2, regular Lungs: clear to auscultation bilaterally, clear to percussion Abdomen: soft, no tender, no distended, no rebound Extremities: no cyanosis, no clubbing Neurological: awake, alert, oriented Skin: intact Infectious Disease Assmt/Plan - Problem List Patient Problems: All Active Problems Diastolic CHF (Acute) I50.30 HIV (human immunodeficiency virus infection) (Acute) History of appendectomy (Acute) Z98.890, Z90.49 History of left knee replacement (Acute) Z96.652 History of tonsillectomy (Acute) Z98.890, Z90.89 Major depressive disorder (Acute) F32.9 Peripheral neuropathy (Acute) G62.9 Polysubstance abuse (Acute) F19.10 RESECTION OF BRAIN TUMOR (Acute) Rheumatoid arthritis (Acute) M06.9 - Assessment Assessment: IMPRESSION: 1. Human immunodeficiency virus, as per the patient, he is stable, doing well. 2. Depression. 3. Generalized weakness. RECOMMENDATIONS: Continue the same medication of Tivicay and Maraviroc. May get records from his HIV provider. Meanwhile, check CD4 count and HIV viral load. Check hepatitis C panel and alpha-fetoprotein. As we do not have maraviroc/ patient is unable get the medication, will replace with presizta and norvir. Nutritional Asmnt/Malnutr-PDOC - Dietary Evaluation Malnutrition Findings (Please click <Entered> for more info): Nutritional Asmnt/Malnutrition Start: 06/26/17 09: 55 Text: Status: Complete Freq: Document 06/26/17 09:56 CEDRIC (Rec: 06/26/17 10:19 [email or web address] [id number]) Nutritional Asmnt/Malnutrition Patient General Information Nutritional Screening Moderate Risk Diagnosis Major depressive disorder Pertinent Medical Hx/Surgical Hx HIV, Hepatitis C, BPH, Peripheral neuropathy Subjective Information Patient was eating lunch at time of visit. No issues with current diet. Current Diet Order/ Nutrition Support Mechanical Soft Chopped Patient / S.O Not Indicated Pertinent Medications Maalox, Pepcid, iron, MOM, zofran, Vitamin B1, Vitamin D3 Pertinent Labs 06/24: Na 130, AST 102, ALT 56 , Alkaline Phosphatase 340, ALbumin 2.6 Nutritional Hx/Data Height 1.83 m Height (Calculated Centimeters) 182.9 Current Weight (lbs) 65.771 kg Weight (Calculated Kilograms) 65.8 Weight (Calculated Grams) 41263.9 [place] Body Weight 178 % [place] Body Weight 81 Body Mass Index (BMI) 19.6 Recent Weight Change No Weight Status Approriate GI Symptoms GI Symptoms None Last BM None noted since admission Difficult in: None Food Allergies No Cultural/Ethnic/Hindu Belief None indicated Usual diet at home Mechanical Soft, Chopped Skin Integrity/Comment: Intact, Michael 18 Current %PO Good (75-100%) Estimated Nutritional Goals BEE in Kcals: Using Current wt Calories/Kcals/Kg 65.8kg Current weight: 27-32 kcal/kg - increased d/t <IBW Kcals Calculated ~7652-1340 kcal/day Protein: Using Current wt Protein g/k-1.2 gm/kg Protein Calculated ~65-75 gm/day Fluid: ml ~0768-8557 ml/day (30-35 ml/kg ) Nutritional Problem 1. Problem Problem Altered nutrition related lab values related to Etiology electrolyte imbalance aeb Signs/Symptoms: Na 130 Intervention/Recommendation Comments 1. Continue mechanical soft, chopped diet as tolerated by patient. 2. Consider fluid restriction if Na remains low. Expected Outcomes/Goals Expected Outcomes/Goals Na normalizes, oral intake remains adequate >75% of meals , weight stable or trends toward ideal body weight.
[2017-07-06] MEDS: Vitamin D3 2,000 IU SGL PO SCH (09:37)
[2017-07-06] MEDS: Ferrous Sulfate 325 MG TAB PO SCH (09:37)
[2017-07-06] MEDS: TIVICAY 50 MG PO SCH (09:39)
[2017-07-06] MEDS: PREZISTA 600 MG PO SCH (09:39)
[2017-07-06] MEDS: NORVIR 100MG TAB PO SCH (09:40)
--- NOTE | 2017-07-06 14:51 | Infectious Disease Prog Note ---
Infectious Disease Subjective - Review of Systems Service Date: 07/06/17 Subjective: Doing well. Infectious Disease Objective - Results Result Diagrams: 06/24/17 06:57 06/24/17 06:57 Recent Labs: Laboratory Last Values WBC 5.8 Th/cmm (4.8-10.8) 06/24/17 06:57 RBC 4.50 Mil/cmm (3.80-5.80) 06/24/17 06:57 Hgb 12.5 gm/dL (12-16) 06/24/17 06:57 Hct 36.9 % (41.0-60) L 06/24/17 06:57 MCV 82.0 fl (80-99) 06/24/17 06:57 MCH 27.7 pg (27.0-31.0) 06/24/17 06:57 MCHC Differential 33.8 pg (28.0-36.0) 06/24/17 06:57 RDW 15.2 % (11.5-20.0) 06/24/17 06:57 Plt Count 193 Th/cmm (150-400) 06/24/17 06:57 MPV 9.1 fl 06/24/17 06:57 Neutrophils % 71.3 % (40.0-80.0) 06/24/17 06:57 Lymphocytes % 14.3 % (20.0-50.0) L 06/24/17 06:57 Monocytes % 6.3 % (2.0-10.0) 06/24/17 06:57 Eosinophils % 7.7 % (0.0-5.0) H 06/24/17 06:57 Basophils % 0.4 % (0.0-2.0) 06/24/17 06:57 Sodium 130 mEq/L (136-145) L 06/24/17 06:57 Potassium 4.0 mEq/L (3.5-5.1) 06/24/17 06:57 Chloride 99 mEq/L (98-107) 06/24/17 06:57 Carbon Dioxide 24.9 mEq/L (21.0-31.0) 06/24/17 06:57 Anion Gap 10.1 (7.0-16.0) 06/24/17 06:57 BUN 17 mg/dL (7-25) 06/24/17 06:57 Creatinine 0.6 mg/dL (0.7-1.3) L 06/24/17 06:57 Est GFR ( Amer) > 60.0 ml/min (>90) 06/24/17 06:57 Est GFR (Non-Af Amer) > 60.0 ml/min 06/24/17 06:57 BUN/Creatinine Ratio 28.3 06/24/17 06:57 Glucose 91 mg/dL (70-105) 06/24/17 06:57 Calcium 8.5 mg/dL (8.6-10.3) L 06/24/17 06:57 Total Bilirubin 1.6 mg/dL (0.3-1.0) H 06/24/17 06:57 AST 102 U/L (13-39) H 06/24/17 06:57 ALT 56 U/L (7-52) H 06/24/17 06:57 Alkaline Phosphatase 340 U/L (34-104) H 06/24/17 06:57 Total Protein 5.8 gm/dL (6.0-8.3) L 06/24/17 06:57 Albumin 2.6 gm/dL (4.2-5.5) L 06/24/17 06:57 Globulin 3.2 gm/dL 06/24/17 06:57 Albumin/Globulin Ratio 0.8 (1.0-1.8) L 06/24/17 06:57 Tumor Marker AFP 16.9 ng/mL (0.0-8.3) H 06/24/17 06:57 Absolute CD4 Count SEE REF. LAB REPORT 06/24/17 06:57 RPR NONREACTIVE (NONREACTIVE) 06/24/17 06:57 Hepatitis A IgM Ab Negative (Negative) 06/24/17 06:57 Hep Bs Antigen Negative (Negative) 06/24/17 06:57 Hep Bs Antibody, Quant SEE REF. LAB REPORT 06/24/17 06:57 Hep B Core Total Ab SEE REF. LAB REPORT 06/24/17 06:57 Hep B Core IgM Ab Negative (Negative) 06/24/17 06:57 Hepatitis C Antibody 0.1 s/co ratio (0.0-0.9) 06/24/17 06:57 HIV 1&2 Antibody Screen POSITIVE (NEG) H 06/24/17 06:57 HIV (1&2) Ab Confirm SEE REF. LAB REPORT 06/24/17 06:57 - Physical Exam Vitals and I&O: Vital Signs Temp 97.8 F 07/06/17 06:44 Pulse 75 07/06/17 06:44 Resp 75 07/06/17 08:00 BP 130/70 07/06/17 06:44 Pulse Ox 98 07/06/17 06:44 Intake & Output 07/05/17 07/06/17 07/06/17 18:59 06:59 18:59 Intake Total 900 120 Balance 900 120 Intake: Oral 900 120 Other: # Voids 4 3 # Bowel Movements 1 General: no acute distress, well developed, well nourished HEENT: atraumatic, normocephalic, PERRLA, EOMI Neck: supple, no thyromegaly Cardiovascular: S1S2, regular Lungs: clear to auscultation bilaterally, clear to percussion Abdomen: soft, no tender, no distended Extremities: no cyanosis, no clubbing, no edema Neurological: awake, alert, oriented Skin: intact Infectious Disease Assmt/Plan - Problem List Patient Problems: All Active Problems Diastolic CHF (Acute) I50.30 HIV (human immunodeficiency virus infection) (Acute) History of appendectomy (Acute) Z98.890, Z90.49 History of left knee replacement (Acute) Z96.652 History of tonsillectomy (Acute) Z98.890, Z90.89 Major depressive disorder (Acute) F32.9 Peripheral neuropathy (Acute) G62.9 Polysubstance abuse (Acute) F19.10 RESECTION OF BRAIN TUMOR (Acute) Rheumatoid arthritis (Acute) M06.9 - Assessment Assessment: IMPRESSION: 1. Human immunodeficiency virus, as per the patient, he is stable, doing well. 2. Depression. 3. Generalized weakness. RECOMMENDATIONS: Continue the same medication of Tivicay and Maraviroc. May get records from his HIV provider. Meanwhile, check CD4 count and HIV viral load. Check hepatitis C panel and alpha-fetoprotein. As we do not have maraviroc/ patient is unable get the medication, will replace with presizta and norvir. Nutritional Asmnt/Malnutr-PDOC - Dietary Evaluation Malnutrition Findings (Please click <Entered> for more info): Nutritional Asmnt/Malnutrition Start: 06/26/17 09: 55 Text: Status: Complete Freq: Document 06/26/17 09:56 CEDRIC (Rec: 06/26/17 10:19 CEDRIC RIZO- [id number]) Nutritional Asmnt/Malnutrition Patient General Information Nutritional Screening Moderate Risk Diagnosis Major depressive disorder Pertinent Medical Hx/Surgical Hx HIV, Hepatitis C, BPH, Peripheral neuropathy Subjective Information Patient was eating lunch at time of visit. No issues with current diet. Current Diet Order/ Nutrition Support Mechanical Soft Chopped Patient / S.O Not Indicated Pertinent Medications Maalox, Pepcid, iron, MOM, zofran, Vitamin B1, Vitamin D3 Pertinent Labs 06/24: Na 130, AST 102, ALT 56 , Alkaline Phosphatase 340, ALbumin 2.6 Nutritional Hx/Data Height 1.83 m Height (Calculated Centimeters) 182.9 Current Weight (lbs) 65.771 kg Weight (Calculated Kilograms) 65.8 Weight (Calculated Grams) 85432.9 [place] Body Weight 178 % [place] Body Weight 81 Body Mass Index (BMI) 19.6 Recent Weight Change No Weight Status Approriate GI Symptoms GI Symptoms None Last BM None noted since admission Difficult in: None Food Allergies No Cultural/Ethnic/Sabianism Belief None indicated Usual diet at home Mechanical Soft, Chopped Skin Integrity/Comment: Intact, Michael 18 Current %PO Good (75-100%) Estimated Nutritional Goals BEE in Kcals: Using Current wt Calories/Kcals/Kg 65.8kg Current weight: 27-32 kcal/kg - increased d/t <IBW Kcals Calculated ~3217-0834 kcal/day Protein: Using Current wt Protein g/k-1.2 gm/kg Protein Calculated ~65-75 gm/day Fluid: ml ~7453-8757 ml/day (30-35 ml/kg ) Nutritional Problem 1. Problem Problem Altered nutrition related lab values related to Etiology electrolyte imbalance aeb Signs/Symptoms: Na 130 Intervention/Recommendation Comments 1. Continue mechanical soft, chopped diet as tolerated by patient. 2. Consider fluid restriction if Na remains low. Expected Outcomes/Goals Expected Outcomes/Goals Na normalizes, oral intake remains adequate >75% of meals , weight stable or trends toward ideal body weight.
--- NOTE | 2017-07-06 19:39 | Discharge Summary ---
DATE OF DISCHARGE: 07/06/2017 IDENTIFYING DATA: The patient is a 66-year-old male, currently homeless. JUSTIFICATION OF HOSPITALIZATION: The patient is admitted here on 5150 as a danger to self and being gravely disabled. CHIEF COMPLAINT: "I want to give up." DIAGNOSES AT THE TIME OF ADMISSION: AXIS IA: Major depressive disorder, recurrent and severe. AXIS IB.: Alcohol dependence. AXIS II: None. AXIS III: As per Dr. Carmona. HISTORY OF PRESENT ILLNESS: Please refer to 06/22/2017 dictation done by me. Physical examination at the time of admission was done by Dr. Carmona and is noted to be significant for the patient being HIV positive. The patient also has hepatitis C, hypertension, iron deficiency anemia. HOSPITAL COURSE AND RESPONSE TO TREATMENT: The patient had blood work done and it was reviewed by Dr. Carmona. The patient, in view of his depression, has been started on escitalopram, which is gradually increased to 20 mg since the patient has been also having mood swings and Abilify has been given at 10 mg. With the medication, the patient was observed and he was noted to be doing fairly well and the patient was finally discharged with the recommendation that he is going to be seeking treatment on an outpatient basis. MENTAL STATUS EXAMINATION: At the time of discharge, the patient is noted to be anxious. Affect is appropriate. Not suicidal or homicidal. Insight and judgment are improving. Impulse control seems to be fair. No side effects to the medications are noted. The patient has been able to verbalize the concerns rather than to act out at the time of the discharge. CONDITION AT THE TIME OF DISCHARGE: Stable. DIAGNOSES AT THE TIME OF DISCHARGE: AXIS IA. Major depressive disorder, recurrent and moderate. AXIS II: None. AXIS III: HIV positive, hepatitis C, anemia. AFTERCARE PLAN: [facility] be followed up on an outpatient basis. PROGNOSIS: At the time of discharge is noted to be fair with the treatment. JOB# [id number]
== END 2017-07-06 13:30 | DRG 885 ==
LOC: GERO 12:50
PROVIDERS: ADMIT Psychiatry & Neurology Psychiatry; ATTEND Psychiatry & Neurology Psychiatry
DX: F33.2 Major depressive disorder, recurrent severe without psychotic features (principal); G62.9 Polyneuropathy, unspecified; B19.20 Unspecified viral hepatitis C without hepatic coma; F10.20 Alcohol dependence, uncomplicated; I10 Essential (primary) hypertension; D50.9 Iron deficiency anemia, unspecified; M79.1 Myalgia; N40.0 Benign prostatic hyperplasia without lower urinary tract symptoms; R53.1 Weakness; Z88.0 Allergy status to penicillin; Z59.0 Homelessness
CPT/HCPCS: 36415-UA; 80053-TC; 80074-90; 82105-90; 85025-TC; 86361-90; 86592-TC; 86689-90; 86703-TC; 86704-90; 86706-90; G0410; J1650; Z7610